=== PATIENT | male | born 1945 | race Caucasian/White ===

== ENCOUNTER 2023-12-09 13:50 | Observation (INO) | payer MEDICARE, SELFPAY ==
[2023-12-09] VITALS (18 sets, daily range): BP systolic 148–180; BP diastolic 103–124; PULSE 57–94; RESP 17–20; TEMP 36.4; O2SAT 95–100
--- NOTE | ~2023-12-09 | CT_ITS ---
EXAMINATION: CTA chest PE protocol DATE: 12/09/2023 23:23 INDICATION: DVT w/ dyspnea on exertion TECHNIQUE: Computed tomography angiography (CTA) of the chest was performed with 100 mL Omnipaque-350 intravenous contrast timed to evaluate the pulmonary arteries. Coronal maximum intensity projection 3D-reconstructions were created by the technologist. The dose-length product (DLP) was 753.17 mGy-cm. Automated exposure control and iterative reconstruction technique were employed. COMPARISON: X-ray chest, same date. FINDINGS: Lung parenchyma and airways: Bilateral dependent consolidation and volume loss. Airways are clear. Pleura: Moderate volume bilateral pleural fluid collections. Thoracic inlet, axillae and chest wall: Asymmetric subareolar soft tissue density in the left breast. Thoracic aorta: Mild atherosclerotic calcification. Mediastinum: Normal. Heart and pericardium: Mild cardiomegaly. Trace pericardial effusion. Coronary artery calcifications: Mild. Upper abdomen: No significant finding. Bones: No acute osseous finding. Exaggerated thoracic kyphosis. Multilevel mild anterior wedge deform ities in the midthoracic spine, likely chronic. Pulmonary arteries: Study quality: Adequate. No pulmonary emboli detected. IMPRESSION: No CT evidence of acute pulmonary embolus. Cardiomegaly. Small pericardial effusion. Moderate bilateral pleural effusions, with bibasilar atelectasis. Asymmetric subareolar soft tissue on the left, recommend nonemergent but timely outpatient diagnostic mammography and breast ultrasound. Reviewed, dictated and finalized at location K. TRICAL EQUIPMENT ASSEMBLER
--- NOTE | ~2023-12-09 | XR_ITS ---
EXAMINATION: XR chest 2V Exam Date/Time: 12/09/2023 17:35 BIOTECHNICIAN HISTORY: new onset atrial fibrillation Comparison: None. RESULT: Lines, tubes, and devices: None. Lungs and pleura: Moderate left and mild right basilar airspace disease. Moderate left and mild righ t costophrenic angle blunting. Cardiomediastinal silhouette: Partially obscured, mild arch desiccation, granulomatous calcification . Other: No acute osseous or upper abdominal finding. IMPRESSION: Moderate left and mild right pleural effusions with adjacent atelectasis. Infection is not excluded. Reviewed, dictated and finalized at location K. ECHNICIAN IMPRESSION: Moderate left and mild right pleural effusions with adjacent atelectasis. Infec tion is not excluded.
--- NOTE | 2023-12-09 14:16 | ECG_ITS ---
Measurements Intervals [place] Rate: 80 P: SD: 0 QRS: 18 QRSD: 92 T: 0 QT: 388 QTc: 449 Interpretive Statements ATRIAL FIBRILLATION NONSPECIFIC T-WAVE ABNORMALITY ABNORMAL RHYTHM ECG NO PREVIOUS ECG AVAILABLE FOR COMPARISON Electronically Signed On 12-09-2023 15:28:54 MOLD WORKER by Jaime Crowell M.D.
--- NOTE | 2023-12-09 17:20 | ED.ARRPALP ---
HPI - Arrhythmia/Palpitations General Chief Complaint: Arrhythmia/Palpitations <Marisol Ernst PA-C - Last Filed: 12/09/23 17:35> Stated Complaint: Irregular HR <Marisol Ernst PA-C - Last Filed: 12/09/23 17:35> Time Seen by Provider: 12/09/23 19:23 <Marisol Ernst PA-C - Last Filed: 12/09/23 17:35> Focused HPI: 78 y/o M reports to the ED for generalized weakness and fatigue x4-5 weeks. Pt states at the onset of symptoms he had cold symptoms , then developed swelling in his LLE. He went to [facility] with DVT in LLE, started on Eliquis. Has does not believe he has missed any doses. He went to his PCP at [facility] in [facility] today for weakness and was told he had a new irregular heartbeat, then advised to come to the ED. Denies chest pain, abdominal pain, n/v/d, fever, rash, headache. States he has intermittent dyspnea and cough. Denies history of A fib. GENERAL: Well-appearing, well-nourished, and in no acute distress. HEAD: Normocephalic, atraumatic. CHEST: Clear to auscultation. ?No respiratory distress. LLE 2+, RLE 3+ pitting edema HEART: Regular rate and rhythm.? NEURO: ?Alert and oriented x3. Patient screened in triage and initial orders placed.? ?Additional care and disposition to be based upon?diagnostic testing and treatment. <Marisol Ernst PA-C - Last Filed: 12/09/23 17:35> Focused HPI: 78 y/o M reports to the ED for generalized weakness and fatigue x4-5 weeks. Pt states at the onset of symptoms he had cold symptoms , then developed swelling in his RLE. He went to [facility] with DVT in RLE, started on Eliquis. Has does not believe he has missed any doses. He went to his PCP at [facility] in [facility] today for weakness and was told he had a new irregular heartbeat, then advised to come to the ED. Denies chest pain, abdominal pain, n/v/d, fever, rash, headache. States he has intermittent dyspnea and cough. Denies history of A fib. GENERAL: Well-appearing, well-nourished, and in no acute distress. HEAD: Normocephalic, atraumatic. CHEST: Clear to auscultation. ?No respiratory distress. LLE 2+, RLE 3+ pitting edema HEART: Regular rate and rhythm.? NEURO: ?Alert and oriented x3. Patient screened in triage and initial orders placed.? ?Additional care and disposition to be based upon?diagnostic testing and treatment. <Mike Walton MD - Last Filed: 12/10/23 01:19> Related Data Allergies/Adverse Reactions: Allergies Allergy/AdvReac Type Severity Reaction Status Date / Time No Known Allergies Allergy Verified 07/18/13 10:28 <Marisol Ernst PA-C - Last Filed: 12/09/23 17:35> PMFSH Past Medical History Medical History: Medical History BPH (benign prostatic hyperplasia) Dementia DVT (deep venous thrombosis) <Marisol Ernst PA-C - Last Filed: 12/09/23 17:35> Exam Narrative: APPEARANCE: No apparent distress. Head: atraumatic. EYES: EOMI, NOSE: Atraumatic NECK: Trachea midline RESPIRATORY: No increased rate of breathing decreased lung sounds in left lower field, with scattered crackles CARDIOVASCULAR: RRR, swelling of the right extremity ABDOMINAL: Non-distended MUSCULOSKELETAl: No obvious deformities NEURO: Alert. Moving 4/4 extremities SKIN:: Warm, dry. Normal color PSYCHIATRIC: Normal affect <Mike Walton MD - Last Filed: 12/10/23 01:19> Course Vital Signs Vital signs: Vital Signs Temperature 97.5 F L 12/09/23 14:10 Pulse Rate 57 L 12/09/23 14:10 Respiratory Rate 12/09/23 14:10 Blood Pressure 148/122 H 12/09/23 14:10 Pulse Oximetry 99 12/09/23 14:10 Oxygen Delivery Room Air 12/09/23 14:10 Temperature 97.5 F L 12/09/23 14:10 Pulse Rate 67 12/09/23 23:11 Respiratory Rate 12/09/23 23:11 Blood Pressure 158/111 H 12/09/23 23:11 Pulse Oximetry 96 12/09/23 23:11 Oxygen Delivery Room Air
[2023-12-09 19:49] LABS: Basophils Percent Auto 0.5 % (0.2-1.2); Eosinophils Absolute Auto 0.4 K/mm3 (0-0.3); Eosinophils Percent Auto 6.3 % (0-4.4); Hematocrit 44.4 % (42.0-52.0); Hemoglobin 13.2 g/dL (14.0-18.0); Immature Granulocyte Absolute 0.01 K/mm3 (0.00-0.031); Immature Granulocyte Percent A 0.2 % (0-0.5); Lymphocytes Absolute Auto 1.53 K/mm3 (0.9-3.2); Lymphocytes Percent Auto 26.9 % (18.3-44.2); Mean Corpuscular HGB Conc 29.7 g/dl (32-36); Mean Corpuscular Hemoglobin 26.2 pg (26-34); Mean Corpuscular Volume 88.3 fl (80-100); Monocytes Absolute Auto 0.5 K/mm3 (0.1-0.6); Monocytes Percent Auto 8.1 % (2.6-8.5); Neutrophils Absolute Auto 3.3 K/mm3 (1.3-6.7); Platelet Count Result 204 k/mm3 (150-375); Red Blood Count 5.03 M/mm3 (4.6-6.20); Red Cell Distribution Width 14.8 % (11.5-14.5); White Blood Count 5.7 K/mm3 (4.5-10.0)
[2023-12-09 19:59] LABS: Alanine Aminotransferase 33 U/L (6-50); Albumin Level 4.3 g/dL (3.5-5.1); Alkaline Phosphatase 63 U/L (38-126); Anion Gap 7 mmol/L (8-16); Aspartate Amino Transferase 35 U/L (17-59); Bilirubin,Total 1.2 mg/dL (0.2-1.3); Blood Urea Nitrogen 22 mg/dL (9-20); Calcium 9.2 mg/dL (8.4-10.2); Carbon Dioxide 28 mmol/L (22-30); Chloride 106 mmol/L (98-107); Estimated CRCL calculation 78 ml/min; Estimated Glomerular Filt Rate > 60; Glucose 138 mg/dL (65-110); Magnesium 2.1 mg/dL (1.6-2.3); Potassium 3.5 mmol/L (3.4-5.0); Sodium 141 mmol/L (137-145)
[2023-12-09 20:01] LABS: INR 1.2; Partial Thromboplastin Time 32.8 SECONDS (22.3-36.8); Prothrombin Time 15.3 Seconds (11.1-14.7)
[2023-12-09 20:03] LABS: Appearance Urine Clear (Clear); Bacteria Urine None Seen /hpf; Bilirubin Urine Negative (Negative); Blood Urine Negative (Negative); Color Urine Yellow (Yellow); Glucose Urine UA Negative (Negative); Ketones Urine Negative (Negative); Leukocyte Esterase Ur Negative LEU/UL (Negative); Nitrate Urine Negative (Negative); Non Pathogenic Casts 0-2; Protein Urine Trace mg/dL (Negative); RBC Urine 0-2 /hpf (0-2); Squamous Epithelial Cell Urine None seen /hpf (Few); Urobilinogen Urine 0.2 mg/dL (<2.0); WBC Urine 0-5 /hpf; pH Urine 5.5 (5.0-9.0)
[2023-12-09 20:09] LABS: Add Urine Microscopic? YES
[2023-12-09 20:12] LABS: NT Pro B Type Natriuretic Pept 3000 pg/mL (19.9-100); Troponin I 0.012 ng/mL (0.000-0.034)
[2023-12-09 20:25] LABS: Influenza A QL RT-PCR Negative (Negative); Influenza B QL RT-PCR Negative (Negative); RSV RNA, RT-PCR Negative (Negative); SARS-CoV-2 RNA PCR Negative (Negative)
[2023-12-10] VITALS (22 sets, daily range): BP systolic 140–177; BP diastolic 93–113; PULSE 76–100; RESP 18–24; TEMP 36.3–36.9; O2SAT 96–100; BMI 32.4
[2023-12-10] MEDS: FUROSEMIDE INJ 40 MG/4 ML VIAL IV PUSH ×2 (00:42→08:43)
--- NOTE | 2023-12-10 01:41 | PM.IMHP ---
H&P: HPI History of Present Illness Date/Time: 12/10/23 01:41 Chief Complaint: Weakness Narrative: Patient is a 78-year-old male who came to the ED for evaluation of generalized weakness and fatigue has been going on for about 4-5 weeks, this was preceded by cold symptoms then left lower extremity swelling, ultrasound of the left lower extremity done and he was diagnosed of DVT and started on Eliquis. He was also seen at his PCP yesterday for generalized weakness and was told he has new onset irregular heartbeat and advised him to come to the emergency department, he had night nausea vomiting or diarrhea, fever Review of Systems Review of Systems: All systems reviewed & are unremarkable except as noted in HPI and below PMFSH Past Medical History Medical History BPH (benign prostatic hyperplasia) Dementia DVT (deep venous thrombosis) Social History Social History Smoking status: Never smoker Alcohol intake: never Substance use: never Do You Feel Safe in your Home?: Yes Lack of Transportation: No Lack of Food: Never True Current Housing: I Have Housing Concerned About Future Housing: No Difficulty Paying Gas/Electric Bills: YES Difficulty Paying for Meds: YES Currently Unemployed: No Education: Master's Degree or Higher Difficulty w/ Childcare or Family Care: No Spiritual care concerns: No Meds Home Medications and Allergies Home Medications Medication Instructions Recorded Confirmed Type apixaban 5 mg tablet (Eliquis) 5 mg PO BID 12/10/23 12/10/23 History donepezil 10 mg tablet 10 mg PO DAILY 12/10/23 12/10/23 History dutasteride 0.5 mg capsule 0.5 mg PO DAILY 12/10/23 12/10/23 History levothyroxine 25 mcg tablet 25 mcg PO DAILY 12/10/23 12/10/23 History metformin 500 mg tablet 500 mg PO BID 12/10/23 12/10/23 History multivit with minerals-iron 18 1 tablet PO DAILY 12/10/23 12/10/23 History mg-folic ac 400 mcg-vit K 25 mcg tablet (Adults Multivitamin) sennosides 8.6 mg tablet (Senna 8.6 mg PO BID 12/10/23 12/10/23 History Lax) tamsulosin 0.4 mg capsule 0.4 mg PO DAILY 12/10/23 12/10/23 History Allergies Allergy/AdvReac Type Severity Reaction Status Date / Time No Known Allergies Allergy Verified 07/18/13 10:28 Vital Signs Vital Signs - 24 hr 12/09/23 14:10 12/09/23 19:44 12/09/23 19:43 Temperature 97.5 F L Pulse Rate 57 L 84 70 Respiratory Rate 20 18 Blood Pressure 148/122 H 180/124 H Pulse Oximetry 99 100 Oxygen Delivery Room Air 12/09/23 20:30 12/09/23 19:44 12/09/23 19:45 Temperature Pulse Rate 80 66 Respiratory Rate 18 Blood Pressure 160/103 H Pulse Oximetry Oxygen Delivery 12/09/23 19:52 12/09/23 20:00 12/09/23 20:01 Temperature Pulse Rate 71 74 78 Respiratory Rate Blood Pressure 165/116 H Pulse Oximetry 99 Oxygen Delivery 12/09/23 20:02 12/09/23 21:27 12/09/23 22:00 Temperature Pulse Rate 84 71 85 Respiratory Rate 17 Blood Pressure Pulse Oximetry 98 100 Oxygen Delivery 12/09/23 22:15 12/09/23 23:11 12/09/23 22:30 Temperature Pulse Rate 86 67 84 Respiratory Rate 20 Blood Pressure 158/111 H Pulse Oximetry 96 100 Oxygen Delivery 12/09/23 22:45 12/09/23 23:00 12/09/23 23:11 Temperature Pulse Rate 84 94 74 Respiratory Rate 18 Blood Pressure 158/111 H Pulse Oximetry 100 Oxygen Delivery 12/09/23 23:45 12/09/23 23:57 12/10/23 00:00 Temperature Pulse Rate 75 91 83 Respiratory Rate Blood Pressure 171/116 H Pulse Oximetry 95 97 Oxygen Delivery 12/10/23 00:01 12/10/23 00:15 12/10/23 00:33 Temperature Pulse Rate 82 84 Respiratory Rate 19 Blood Pressure Pulse Oximetry 98 96 Oxygen Delivery Exam Narrative: PPEARANCE: No apparent distress. Head: atraumatic. EYES:? EOMI, NOSE: Atraumatic NEC
[2023-12-10] MEDS: ENOXAPARIN 120 MG/0.8 ML SYRINGE SUB-Q (03:50)
--- NOTE | 2023-12-10 05:14 | ADMGEN ---
This patient, Francisco Little, was admitted to [facility] Surg Room 332-02. Patient/family oriented to hospital policies and general routines including ID bracelet, bed and alarms, visiting hours, pain management, procedures, bathroom and other care routines, personal items, smoking policy, room service/diet, and visiting hours. Information on how to activate the Rapid Response Team has been discussed. Patient/Family are encouraged to report perceived risks to care and to ask questions if they do not understand what they are told or what they should do.
[2023-12-10 05:44] LABS: Phosphorus 3.6 mg/dL (2.5-4.5)
[2023-12-10 06:42] LABS: Basophils Absolute Auto 0.1 K/mm3 (0.0-0.1); Basophils Percent Auto 0.8 % (0.2-1.2); Eosinophils Absolute Auto 0.3 K/mm3 (0-0.3); Eosinophils Percent Auto 4.7 % (0-4.4); Hematocrit 43.3 % (42.0-52.0); Hemoglobin 13.2 g/dL (14.0-18.0); Immature Granulocyte Absolute 0.01 K/mm3 (0.00-0.031); Immature Granulocyte Percent A 0.1 % (0-0.5); Lymphocytes Absolute Auto 1.23 K/mm3 (0.9-3.2); Lymphocytes Percent Auto 17.1 % (18.3-44.2); Mean Corpuscular HGB Conc 30.5 g/dl (32-36); Mean Corpuscular Hemoglobin 26.5 pg (26-34); Mean Corpuscular Volume 86.9 fl (80-100); Mean Platelet Volume 9.1 fl (7.4-10.4); Monocytes Absolute Auto 0.7 K/mm3 (0.1-0.6); Monocytes Percent Auto 9.7 % (2.6-8.5); Neutrophils Absolute Auto 4.9 K/mm3 (1.3-6.7); Neutrophils Percent Auto 67.6 % (45.5-73.1); Platelet Count Result 213 k/mm3 (150-375); Red Blood Count 4.98 M/mm3 (4.6-6.20); Red Cell Distribution Width 14.8 % (11.5-14.5); White Blood Count 7.2 K/mm3 (4.5-10.0)
[2023-12-10 06:51] LABS: Anion Gap 6 mmol/L (8-16); Blood Urea Nitrogen 18 mg/dL (9-20); Carbon Dioxide 28 mmol/L (22-30); Chloride 105 mmol/L (98-107); Estimated CRCL calculation 78 ml/min; Estimated Glomerular Filt Rate > 60; Glucose 127 mg/dL (65-110); Potassium 3.1 mmol/L (3.4-5.0); Sodium 139 mmol/L (137-145)
--- NOTE | 2023-12-10 08:41 | ECG_ITS ---
Measurements Intervals [place] Rate: 85 P: [place]: 0 QRS: 56 QRSD: 90 T: -5 QT: 397 QTc: 475 Interpretive Statements ATRIAL FIBRILLATION WITH ABERRANT CONDUCTION MODERATE T-WAVE ABNORMALITY, CONSIDER ANTERIOR ISCHEMIA [-0.1+ mV T WAVE IN V3/V4] ABNORMAL ECG COMPARED TO ECG 12/09/2023 14:20:12 RATE RELATED LEFT BUNDLE BRANCH BLOCK IS NO SEEN Electronically Signed On 12-10-2023 19:12:10 PUBLIC AFFAIRS MANAGER by Jaime Crowell M.D.
[2023-12-10] MEDS: TAMSULOSIN HCL 0.4 MG CAPSULE PO (08:43)
[2023-12-10] MEDS: MULTIVITAMINS /C LUTEIN (CENTRUM SILVER) TABLET *BKC 1 TAB PO (08:43)
[2023-12-10] MEDS: DUTASTERIDE 0.5 MG CAPSULE PO (08:43)
[2023-12-10] MEDS: LEVOTHYROXINE SODIUM 25 MCG TABLET PO (08:43)
[2023-12-10] MEDS: SENNOSIDES 8.6 MG TABLET PO ×2 (08:43→18:12)
[2023-12-10] MEDS: POTASSIUM CHLORIDE INJ 40 MEQ in SODIUM CHLORIDE 0.9% IV 500 ML 130 MEQ IVPB (08:43)
[2023-12-10] MEDS: DONEPEZIL HCL 10 MG TABLET PO (08:43)
[2023-12-10] MEDS: metFORMIN HCL 500 MG TABLET PO ×2 (08:43→18:13)
[2023-12-10] MEDS: POTASSIUM CHLORIDE 20 MEQ ER TABLET 40 MEQ PO (08:45)
--- NOTE | 2023-12-10 09:01 | PM.IMPN ---
Progress Note: A&P Assessment and Plan (1) Atrial fibrillation, new onset: Code(s): I48.91 - Unspecified atrial fibrillation Status: Acute Assessment and Plan: Apparent new onset atrial fibrillation currently anticoagulated with Eliquis for known right lower extremity DVT. Rate is highly variable from the 60s to 130s and definitely increases with activity/exertion. Cardiology consulted. Patient moved to IMU due to runs of wide complex tachycardia alarming as V-tach. Potassium is 3.1 and replacement ordered. Magnesium is normal at 2.0. (2) CHF (congestive heart failure): Code(s): I50.9 - Heart failure, unspecified Status: Acute Assessment and Plan: No prior history of CHF per patient report. Cardiomegaly present on imaging as well as pleural effusion. Echocardiogram ordered. Cardiology consulted. proBNP 3000. Patient urinated out over 4000 mL of urine after receiving IV Lasix at midnight and again at 9:00 a.m. (3) DVT (deep venous thrombosis): Code(s): I82.409 - Acute embolism and thrombosis of unspecified deep veins of unspecified lower extremity Status: Acute Assessment and Plan: Continue Eliquis Time Spent With Patient Time with patient: Greater than 35 minutes Subjective Date/time seen: 12/10/23 09:01 Interval history: This is a 78 male patient who was admitted to the hospital for what appears to be new onset atrial fibrillation and severe fatigue. Patient reports that 5 weeks ago he developed cold like symptoms and since that time he has been getting more fatigued daily. He reports significant shortness of breath on exertion such as climbing stairs. Patient reports he developed right leg swelling and was subsequently diagnosed with DVT and started on Eliquis. In ER patient had negative CTA chest. On the medical floor heart rate was irregular and rhythm appeared to have runs of V-tach. Patient moved to IMU and Cardiology to see. Review of Systems Review of Systems: All systems reviewed & are unremarkable except as noted in HPI and below Exam Narrative: GENERAL: Appears younger than stated age, well-nourished, fatigued appearing HEAD: Normocephalic, atraumatic. ENT:? Mucous membranes moist. CHEST: Clear to auscultation.? No respiratory distress. HEART: Irregular rate and irregularly irregular rhythm. ? Normal peripheral pulses. Atrial fibrillation with runs wide complex tachycardia, rate varies from 63 to 130 per telemetry monitoring by my own interpretation. ABDOMEN: Soft, nontender, nondistended. EXTREMITIES: Normal range of motion. Right lower extremity mildly swollen, Ede hose in place bilaterally SKIN: Warm dry normal color NEURO: Alert and oriented x3. PSYCH: Normal mood and affect Objective Data Vital Signs Vital Signs: Vital Signs - 24 hr 12/09/23 14:10 12/09/23 19:44 12/09/23 19:43 Temperature 36.4 C L Pulse Rate 57 L 84 70 Respiratory Rate 20 18 Blood Pressure 148/122 H 180/124 H Pulse Oximetry 99 100 Oxygen Delivery Room Air 12/09/23 20:30 12/09/23 19:44 12/09/23 19:45 Temperature Pulse Rate 80 66 Respiratory Rate 18 Blood Pressure 160/103 H Pulse Oximetry Oxygen Delivery 12/09/23 19:52 12/09/23 20:00 12/09/23 20:01 Temperature Pulse Rate 71 74 78 Respiratory Rate Blood Pressure 165/116 H Pulse Oximetry 99 Oxygen Delivery 12/09/23 20:02 12/09/23 21:27 12/09/23 22:00 Temperature Pulse Rate 84 71 85 Respiratory Rate 17 Blood Pressure Pulse Oximetry 98 100 Oxygen Delivery 12/09/23 22:15 12/09/23 23:11 12/09/23 22:30 Temperature Pulse Rate 86 67 84 Respiratory Rate 20 Blood Pressure 158/111 H Pulse Oximetry 96 100 Oxygen Delivery 12/09/23 22:45 12/09/23 23:00 12/09/23 23:11 Temperature Pulse Rate 84 94 74 Respiratory Rate 18 Blood Pressure 158/111 H Pulse Oximetry 100 Oxygen Delivery 12/09/23 23:45 12/09/23 23
--- NOTE | 2023-12-10 13:03 | PC.NURSE ---
This patient, Francisco Little, was transferred to [facility] on 12/10/23 at 1303. Personal belongings sent with patient. Report given to bedside RN. Appropriate documentation sent with patient.
--- NOTE | 2023-12-10 13:15 | PC.NURSE ---
patient arrived to 204 at 1300, telemetry placed, Dr. Crowell talking to patient, bed alarm placed.
--- NOTE | 2023-12-10 16:34 | PM.CNCAR ---
Assessment and Plan Assessment and plan (1) Atrial fibrillation, new onset: Code(s): I48.91 - Unspecified atrial fibrillation Status: Acute Plan This is a 78-year-old gentleman who has atrial fibrillation and has previously not been diagnosed her appreciated. I do not have any records that include EKGs recently that demonstrate sinus rhythm so the exact onset of this arrhythmia is unknown. Unfortunately because of his DVT he is already systemically anticoagulated with apixaban. He does have some edema and pleural effusions and so the possibility of CHF is being entertained in his chart. He does not really require a lot of rate control since his heart rate was in the 80s at the time of presentation. At this time I am going to recommend transitioning from diltiazem to metoprolol for his atrial fib as this would be preferred if he does have some congestive heart failure. I will review his echocardiogram after the study is done today. We will not be recommending or attempting cardioversion during this hospital stay as his atrial fibrillation is hemodynamically stable and of unknown duration of onset. Will follow him with you during this hospital stay. There was a lot of concern this morning that he was having ventricular arrhythmias which as I mentioned above is not the case Jiame Crowell MD [facility] History of Present Illness History of Present Illness Consult date/time: 12/10/23 16:34 Reason For Visit: new afib Narrative: This is a 78-year-old man I am seeing at the request of the hospitalist because of atrial fibrillation and the suspected new diagnosis of congestive heart failure. The patient has never had cardiac problems in the past that he can recall. He indicates that he consider [facility] to be usually in fairly good health but he recently developed a left lower extremity DVT and was evaluated at [facility] in [place]. He indicates that he was started on anticoagulation with apixaban at that time and that was a couple of weeks ago. He went to see his primary care physician in follow-up yesterday apparently is located in [place] and in the office detected that he was in atrial fibrillation and told him to go to the emergency room here at [facility] have that evaluated. In the emergency room it looks like his ECG shows atrial fibrillation with a heart rate of 80 and he was admitted to the 3rd floor. During the course of telemetry on the 3rd floor it was noticed that he would at times have a wider QRS which was concerning to them for ventricular tachycardia. Upon my personal review this represents aberrantly conducted atrial fibrillation. He does not have any awareness of irregularity of his heart rate or any symptoms of palpitations he is not really reporting symptoms of dyspnea. He has lower extremity edema he stents is been chronic for some time is possibly little worse. His chest x-ray demonstrates small to medium sized bilateral pleural effusions. He is not reporting orthopnea or PND. His only physical complaint is that of generalized fatigue and lack of energy. The patient believes this is all a consequence of recent COVID infection. He states he had a significant coronavirus infection 3-4 years ago and tested positive at that time. Several weeks ago he was sick with a viral illness marked with a fever and malaise. He did not test for coronavirus but he suspects that he had it. He appears to have a history of non insulin-dependent diabetes being treated with metformin and hypothyroidism being treated with levothyroxine. He is taking apixaban 5 mg b.i.d. as mentioned above. Diltiazem 30 mg q.6 hours has been ordered presumably to provide rate control. Review of Systems Constitutional: Constitutional: Reports fatigue and Reports lethargy Eyes: Eyes: Reports no additional eye complaints ENT: Reports system reviewed and no additional complaints, except as documented Cardiovascular: Cardiovascu
[2023-12-10] MEDS: METOPROLOL TARTRATE 12.5 MG TABLET PO (18:13)
[2023-12-10] MEDS: APIXABAN 5 MG TABLET PO (20:19)
[2023-12-10 20:42] LABS: Free T4 Free Thyroxine 1.91 ng/mL (0.78-2.19)
[2023-12-10 20:56] LABS: Total Triiodothyronine (T3) 1.02 NG/ML (0.97-1.69)
[2023-12-10 21:33] LABS: Free T4 Free Thyroxine Reflex 2.01 ng/dL (0.78-2.19)
[2023-12-11] VITALS (12 sets, daily range): BP systolic 130–146; BP diastolic 83–102; PULSE 67–98; RESP 17–20; TEMP 36.5–36.9; O2SAT 95–100
[2023-12-11 04:59] LABS: Basophils Percent Auto 0.8 % (0.2-1.2); Eosinophils Absolute Auto 0.2 K/mm3 (0-0.3); Eosinophils Percent Auto 3.5 % (0-4.4); Hematocrit 38.8 % (42.0-52.0); Immature Granulocyte Absolute 0.01 K/mm3 (0.00-0.031); Immature Granulocyte Percent A 0.2 % (0-0.5); Lymphocytes Absolute Auto 1.25 K/mm3 (0.9-3.2); Lymphocytes Percent Auto 24.6 % (18.3-44.2); Mean Corpuscular HGB Conc 30.9 g/dl (32-36); Mean Corpuscular Hemoglobin 26.4 pg (26-34); Mean Corpuscular Volume 85.3 fl (80-100); Mean Platelet Volume 9.3 fl (7.4-10.4); Monocytes Absolute Auto 0.5 K/mm3 (0.1-0.6); Monocytes Percent Auto 9.1 % (2.6-8.5); Neutrophils Absolute Auto 3.1 K/mm3 (1.3-6.7); Neutrophils Percent Auto 61.8 % (45.5-73.1); Platelet Count Result 187 k/mm3 (150-375); Red Blood Count 4.55 M/mm3 (4.6-6.20); White Blood Count 5.1 K/mm3 (4.5-10.0)
[2023-12-11 05:17] LABS: Alanine Aminotransferase 22 U/L (6-50); Albumin Level 3.2 g/dL (3.5-5.1); Alkaline Phosphatase 53 U/L (38-126); Anion Gap 3 mmol/L (8-16); Aspartate Amino Transferase 26 U/L (17-59); Bilirubin,Total 1.2 mg/dL (0.2-1.3); Blood Urea Nitrogen 16 mg/dL (9-20); Calcium 8.7 mg/dL (8.4-10.2); Carbon Dioxide 29 mmol/L (22-30); Chloride 108 mmol/L (98-107); Estimated CRCL calculation 77 ml/min; Estimated Glomerular Filt Rate > 60; Glucose 131 mg/dL (65-110); Potassium 3.4 mmol/L (3.4-5.0); Sodium 140 mmol/L (137-145)
[2023-12-11] MEDS: LEVOTHYROXINE SODIUM 25 MCG TABLET PO (05:48)
[2023-12-11] MEDS: POTASSIUM CHLORIDE INJ 40 MEQ in SODIUM CHLORIDE 0.9% IV 500 ML 130 MEQ IVPB (09:53)
[2023-12-11] MEDS: POTASSIUM CHLORIDE 20 MEQ ER TABLET 40 MEQ PO (09:53)
[2023-12-11] MEDS: DONEPEZIL HCL 10 MG TABLET PO (09:54)
[2023-12-11] MEDS: MULTIVITAMINS /C LUTEIN (CENTRUM SILVER) TABLET *BKC 1 TAB PO (09:54)
[2023-12-11] MEDS: metFORMIN HCL 500 MG TABLET PO (09:54)
[2023-12-11] MEDS: METOPROLOL SUCCINATE EXT REL 25 MG TABCR PO (09:54)
[2023-12-11] MEDS: DUTASTERIDE 0.5 MG CAPSULE PO (09:54)
[2023-12-11] MEDS: SENNOSIDES 8.6 MG TABLET PO (09:54)
[2023-12-11] MEDS: TAMSULOSIN HCL 0.4 MG CAPSULE PO (09:54)
[2023-12-11] MEDS: FUROSEMIDE INJ 40 MG/4 ML VIAL IV PUSH (09:55)
[2023-12-11] MEDS: APIXABAN 5 MG TABLET PO (09:55)
--- NOTE | 2023-12-11 10:15 | PM.IMPN ---
Subjective Date/time seen: 12/11/23 10:15 Objective Data Vital Signs Vital Signs: Vital Signs - 24 hr 12/10/23 12:00 12/10/23 12:00 12/10/23 17:10 Temperature 36.3 C L Pulse Rate 100 85 Respiratory Rate 18 Blood Pressure 149/100 H Pulse Oximetry 99 Oxygen Delivery Room Air 12/10/23 18:13 12/10/23 16:00 12/10/23 16:00 Temperature Pulse Rate 90 86 Respiratory Rate Blood Pressure Pulse Oximetry Oxygen Delivery Room Air 12/10/23 20:00 12/10/23 20:00 12/10/23 20:00 Temperature 36.9 C Pulse Rate 94 94 76 Respiratory Rate 18 18 Blood Pressure 140/93 H Pulse Oximetry 96 96 Oxygen Delivery Room Air 12/10/23 22:00 12/11/23 00:00 12/11/23 00:00 Temperature Pulse Rate 76 81 81 Respiratory Rate 20 Blood Pressure Pulse Oximetry 97 Oxygen Delivery Room Air 12/11/23 01:34 12/11/23 00:00 12/11/23 03:51 Temperature 36.5 C 36.9 C Pulse Rate 67 92 94 Respiratory Rate 18 18 Blood Pressure 141/88 H 146/98 H Pulse Oximetry 97 95 Oxygen Delivery 12/11/23 03:52 12/11/23 04:00 12/11/23 05:17 Temperature Pulse Rate 94 69 68 Respiratory Rate 18 Blood Pressure Pulse Oximetry 95 Oxygen Delivery Room Air 12/11/23 07:54 12/11/23 09:31 12/11/23 09:54 Temperature 36.8 C Pulse Rate 87 98 Respiratory Rate 17 Blood Pressure 130/83 Pulse Oximetry 97 Oxygen Delivery Room Air Intake/Output Intake/Output: Intake & Output 12/08/23 12/09/23 12/10/23 12/11/23 23:59 23:59 23:59 23:59 Intake Total 688 490 Output Total 5150 300 Balance -4462 190 Meds/Results Medications: Active Medications Generic Name Dose Route Start Last Admin Trade Name Freq PRN Reason Stop Dose Admin Apixaban 5 mg 12/10/23 21:00 12/11/23 09:55 Apixaban 5 Mg Tablet PO 5 mg Q12HR TARA Administration Donepezil HCl 10 mg 12/10/23 09:00 12/11/23 09:54 Donepezil Hcl 10 Mg Tablet PO 10 mg DAILY TARA Administration Dutasteride 0.5 mg 12/10/23 09:00 12/11/23 09:54 Dutasteride 0.5 Mg Capsule PO 0.5 mg DAILY TARA Administration Furosemide 40 mg 12/10/23 09:00 12/11/23 09:55 Furosemide Inj 40 Mg/4 Ml Vial IV PUSH 40 mg DAILY TARA Administration Potassium Chloride 40 meq/ 520 mls @ 130 mls/hr 12/11/23 07:11 12/11/23 09:53 Sodium Chloride IVPB 12/11/23 11:10 130 mls/hr ONCE ONE Administration Levothyroxine Sodium 25 mcg 12/10/23 06:30 12/11/23 05:48 Levothyroxine Sodium 25 Mcg Tablet PO 25 mcg DAILY@0630 TARA Administration Metformin HCl 500 mg 12/10/23 09:00 12/11/23 09:54 Metformin Hcl 500 Mg Tablet PO 500 mg BID TARA Administration Metoprolol Succinate 25 mg 12/11/23 09:00 12/11/23 09:54 Metoprolol Succinate Ext Rel 25 Mg Tabcr PO 25 mg QAM TARA Administration Multivitamins/Minerals 1 tab 12/10/23 09:00 12/11/23 09:54 Multivitamins /C Lutein (Centrum Silver) Tablet *Bkc PO 1 tab DAILY TARA Administration Perflutren Lipid Microsphere 0 ml 12/10/23 01:17 Perflutren Lipid Microspheres 1.5 Ml Vial Diluted To 10 Ml Total Volume IV PUSH 12/13/23 01:18 ONCE PRN adequate visualization Protocol Senna 8.6 mg 12/10/23 09:00 12/11/23 09:54 Sennosides 8.6 Mg Tablet PO 8.6 mg BID TARA Administration Tamsulosin HCl 0.4 mg 12/10/23 09:00 12/11/23 09:54 Tamsulosin Hcl 0.4 Mg Capsule PO 0.4 mg DAILY TARA Administration Radiology Results: ITS Impressions Chest X-Ray 12/09/23 17:42 IMPRESSION: Moderate left and mild right pleural effusions with adjacent atelectasis. Infection is not excluded. Chest CTA 12/09/23 23:42 IMPRESSION: No CT evidence of acute pulmonary embolus. Cardiomegaly. Small pericardial effusion. Moderate bilateral pleural effusions, with bibasilar atelectasis. Asymmetric subareolar soft tissue on the left, recommend nonemergent but timely outpatient diagnostic mammography and breast u
--- NOTE | 2023-12-11 10:37 | PM.PNCARD ---
Progress Note: A&P Assessment and Plan (1) Atrial fibrillation, new onset: Code(s): I48.91 - Unspecified atrial fibrillation Status: Acute Plan 78-year-old man with: Atrial fibrillation of unknown duration. His heart rate is well controlled with modest dose of metoprolol and as mentioned previously he is already anticoagulated with apixaban. Seems to be hemodynamically stable. Echocardiogram will take place tomorrow after which he can probably be discharged for outpatient follow-up. Expect a conservative approach to this with rate control and anticoagulation at this time Jaime Crowell MD [facility] Subjective Date/time seen: Date of service: 12/11/23 10:37 Interval history: Follow-up visit in this 78-year-old man with: Atrial fibrillation of uncertain chronicity. He was referred here by his PCP when AFib was detected in the office. Heart rate is well controlled with metoprolol. Telemetry does demonstrate rate related left bundle branch block. Patient already had been anticoagulated because of recent diagnosis of lower extremity DVT. He feels well this morning and offers no significant complaints Exam Const: General: comfortable Other: Tall elderly man comfortable cooperative with appears to be in good spirits HENMT: Mouth: Yes moist mucous membranes Eyes: Sclera: sclerae normal Neck: Neck: supple and no JVD Resp: Effort & Inspection: normal respiratory effort Auscultation: clear to auscultation bilaterally Cardio: Rate: regular rate Rhythm: abnormal rhythm irregularly irregular GI: GI Palp: Yes Soft to palpation Auscultation: normal bowel sounds Skin: General skin exam: normal color Neuro: Other: Alert and oriented x3 Extrem: General: normal to inspection Objective Data Vital Signs Vital Signs: Vital Signs - 24 hr 12/10/23 12:00 12/10/23 12:00 12/10/23 17:10 Temperature 36.3 C L Pulse Rate 100 85 Respiratory Rate 18 Blood Pressure 149/100 H Pulse Oximetry 99 Oxygen Delivery Room Air 12/10/23 18:13 12/10/23 16:00 12/10/23 16:00 Temperature Pulse Rate 90 86 Respiratory Rate Blood Pressure Pulse Oximetry Oxygen Delivery Room Air 12/10/23 20:00 12/10/23 20:00 12/10/23 20:00 Temperature 36.9 C Pulse Rate 94 94 76 Respiratory Rate 18 18 Blood Pressure 140/93 H Pulse Oximetry 96 96 Oxygen Delivery Room Air 12/10/23 22:00 12/11/23 00:00 12/11/23 00:00 Temperature Pulse Rate 76 81 81 Respiratory Rate 20 Blood Pressure Pulse Oximetry 97 Oxygen Delivery Room Air 12/11/23 01:34 12/11/23 00:00 12/11/23 03:51 Temperature 36.5 C 36.9 C Pulse Rate 67 92 94 Respiratory Rate 18 18 Blood Pressure 141/88 H 146/98 H Pulse Oximetry 97 95 Oxygen Delivery 12/11/23 03:52 12/11/23 04:00 12/11/23 05:17 Temperature Pulse Rate 94 69 68 Respiratory Rate 18 Blood Pressure Pulse Oximetry 95 Oxygen Delivery Room Air 12/11/23 07:54 12/11/23 09:31 12/11/23 09:54 Temperature 36.8 C Pulse Rate 87 98 Respiratory Rate 17 Blood Pressure 130/83 Pulse Oximetry 97 Oxygen Delivery Room Air Intake/Output Intake/Output: Intake & Output 12/08/23 12/09/23 12/10/23 12/11/23 23:59 23:59 23:59 23:59 Intake Total 688 490 Output Total 5150 300 Balance -4462 190 Meds/Results Medications: Active Medications Generic Name Dose Route Start Last Admin Trade Name Freq PRN Reason Stop Dose Admin Apixaban 5 mg 12/10/23 21:00 12/11/23 09:55 Apixaban 5 Mg Tablet PO 5 mg Q12HR TARA Administration Donepezil HCl 10 mg 12/10/23 09:00 12/11/23 09:54 Donepezil Hcl 10 Mg Tablet PO 10 mg DAILY TARA Administration Dutasteride 0.5 mg 12/10/23 09:00 12/11/23 09:54 Dutasteride 0.5 Mg Capsule PO 0.5 mg DAILY TARA Administration Furosemide 40 mg 12/10/23 09:00 12/11/23 09:55 Furosemide Inj 40 Mg/4 Ml Vial IV PUSH 40 mg DAILY [facility] Ad
--- NOTE | 2023-12-11 12:58 | PM.DS ---
DS: Admitting Diagnosis Discharge Date 12/11/2023 Admitting Diagnosis Atrial fibrillation new onset, cardiomegaly, pleural effusion, CHF DS: Discharge Diagnosis Discharge Diagnosis (1) Atrial fibrillation, new onset: Code(s): I48.91 - Unspecified atrial fibrillation Status: Acute (2) CHF (congestive heart failure): Code(s): I50.9 - Heart failure, unspecified Status: Acute (3) DVT (deep venous thrombosis): Code(s): I82.409 - Acute embolism and thrombosis of unspecified deep veins of unspecified lower extremity Status: Acute Plan Patient did not want to stay any longer for echocardiogram he wanted to obtain as an outpatient so prescription was written for such as well as Lasix 20 mg daily. DS: Summary Hospital Course Hospital Course: This is a 78-year-old male patient who was admitted to the hospital for fatigue and atrial fibrillation of unknown onset. His anticoagulated due to right lower extremity DVT that was discovered previously. Patient denied any difficulty breathing but had pleural effusion on chest x-ray and a slightly elevated BNP. He received Lasix and urinated significantly. Patient reported he only had shortness of breath on exertion. No swelling noted. Lung sounds are clear. Patient still works and wants to get to work. He also stated he did not want to stay any longer in the hospital and wanted to do his echocardiogram as an outpatient. He was placed on metoprolol for rate control for which a prescription was written as well as low-dose furosemide prescription. Patient is going to follow up with his primary care provider and his consultant intern. Status at Discharge Cognitive/behavioral status at discharge: Awake alert oriented though he does have sundowning symptoms reported by slot shift manager Functional status at discharge: independent ambulation Overall status at discharge: patient is progressing back to baseline Time Spent with Patient Time attestation: Total time spent providing and/or coordinating discharge services: 35 minutes Time spent: Greater than 30 minutes Exam Narrative: GENERAL: Appears younger than stated age, well-nourished, fatigued appearing HEAD: Normocephalic, atraumatic. ENT:? Mucous membranes moist. CHEST: Clear to auscultation.? No respiratory distress. HEART: Irregular rate and irregularly irregular rhythm. ? Normal peripheral pulses. Atrial fibrillation with aberrant conduction with heart rate between 70 and 85 per telemetry monitoring by my own interpretation. ABDOMEN: Soft, nontender, nondistended. EXTREMITIES: Normal range of motion. Right lower extremity mildly swollen, Ede hose in place bilaterally SKIN: Warm dry normal color NEURO: Alert and oriented x3. PSYCH: Normal mood and affect DS: Data Data Completed and Pending Completed studies during hospitalization: Chest x-ray, chest CTA Pending studies at discharge: Echocardiogram which patient wants to obtain as an outpatient Labs on day of discharge: Labs from last 24 hours 12/11/23 12/10/23 12/10/23 04:27 06:18 06:18 WBC 5.1 RBC 4.55 L Hgb 12.0 L Hct 38.8 L MCV 85.3 MCH 26.4 MCHC 30.9 L RDW 15.0 H Plt Count 187 MPV 9.3 Immature Gran % (Auto) 0.2 Neut % (Auto) 61.8 Lymph % (Auto) 24.6 [place] % (Auto) 9.1 H Eos % (Auto) 3.5 Baso % (Auto) 0.8 Lymph # (Auto) 1.25 [place] # (Auto) 0.5 Eos # (Auto) 0.2 Baso # (Auto) 0.0 Abs Immat Gran (auto) 0.01 Absolute Neuts (auto) 3.1 Absolute Nucleated RBC 0.0 Nucleated RBC % 0.0 Sodium 140 Potassium 3.4 Chloride 108 H Carbon Dioxide 29 Anion Gap 3 L BUN 16 Creatinine 1.00 Estim Creat Clear Calc 77 Estimated GFR > 60 Glucose 131 H Calcium 8.7 Magnesium 2.0 Total Bilirubin 1.2 AST 26 ALT 22 Alkaline Phosphatase 53 Total Protein 5.0 L Albumin 3.2 L TSH (Reflex) 5.030 H Free T4 2.01 1.91 Total
== END 2023-12-11 15:05 | disposition home or self-care (01) ==
LOC: ANHED 12-10 00:09 → ANHIMU 12-11 12:01 → ANH3MEDSUR 12-13 08:09 → ANHIMU 12-13 08:09
PROVIDERS: Nurse Practitioner; Physician Assistant; Admitting Provider Student in an Organized Health Care Education/Training Program; Emergency Provider Emergency Medicine; Visit Provider Internal Medicine
DX: I48.91 Unspecified atrial fibrillation (principal); I51.7 Cardiomegaly; J90 Pleural effusion, not elsewhere classified; I50.9 Heart failure, unspecified; I82.402 Acute embolism and thrombosis of unspecified deep veins of left lower extremity; I31.39 Other pericardial effusion (noninflammatory); F03.90 Unspecified dementia, unspecified severity, without behavioral disturbance, psychotic disturbance, mood disturbance, and anxiety; N40.0 Benign prostatic hyperplasia without lower urinary tract symptoms; E03.9 Hypothyroidism, unspecified; E11.9 Type 2 diabetes mellitus without complications; Z98.62 Peripheral vascular angioplasty status; Z86.16 Personal history of COVID-19; Z79.01 Long term (current) use of anticoagulants; Z20.822 Contact with and (suspected) exposure to COVID-19; Z79.84 Long term (current) use of oral hypoglycemic drugs; Z79.899 Other long term (current) drug therapy
CPT/HCPCS: 36415; 71046; 71275; 80048; 80053; 81001; 83735; 83880; 84100; 84439; 84443; 84480; 84484; 85025; 85610; 85730; 87637; 93005; 96365; 96366; 96372; 96375; 96376; 97161; 97165; 99285; A9270; G0378; J1650; J1940; J3480; J7040; Q9967

== ENCOUNTER 2023-12-14 14:00 | Outpatient (CLI) | payer MEDICARE, SELFPAY ==
--- NOTE | 2023-12-14 14:27 | ECHO_ITS ---
Patient Info Name: Francisco Little Age: 78 years : 1945 Gender: Male Ht: 75 in Wt: 262 lbs BSA: 2.54 m2 HR: 82 bpm BP: 141 / 110 mmHg Heart Rhythm: Atrial Fibrillation Technical Quality: Good Exam Date: 12/14/2023 2:42 PM Exam Location: Echo Lab Patient Status: Outpatient Admit Date: 12/14/2023 Staff Ordering Physician: Andrew Lubin APRN Dairy Manager: Alka Myrick RDCS Attending Provider: Andrew Lubin APRN Referring Physician: Tristian JEFFERSON; Exam Type: CA echo doppler color flow Study Info Indications - HEART FAILURE, UNSPECIFIED Complete two-dimensional, color flow and Doppler transthoracic echocardiogram is performed. Summary 1. Complete two-dimensional, color flow and Doppler transthoracic echocardiogram is performed. 2. Left ventricular chamber dimension is mildly enlarged. 3. Left ventricular systolic function is mild to moderately reduced, estimated at 40-45%. 4. There is mildly increased left ventricular wall thickness. 5. The left ventricular diastolic function is indeterminate. 6. Right ventricular chamber dimension is mildly enlarged. 7. Right ventricular systolic function is mildly reduced. 8. Left atrial chamber dimension is severely enlarged. 9. Right atrial chamber dimension is severely enlarged. 10. There is mild to moderate mitral valve regurgitation. 11. There is mild to moderate tricuspid valve regurgitation. 12. Moderate pulmonary hypertension, estimated pulmonary arterial systolic pressure is 49 mmHg. Left Ventricle Left ventricular chamber dimension is mildly enlarged. Left ventricular systolic function is mild to moderately reduced, estimated at 40-45%. There is mildly increased left ventricular wall thickness. The left ventricular diastolic function is indeterminate. Right Ventricle Right ventricular chamber dimension is mildly enlarged. Right ventricular systolic function is mildly reduced. Left Atria Left atrial chamber dimension is severely enlarged. Right Atria Right atrial chamber dimension is severely enlarged. Aortic Valve The aortic valve is trileaflet. There is no aortic valve stenosis. There is trace aortic valve regurgitation. Pulmonic Valve The pulmonic valve is not well visualized. Mitral Valve The mitral valve has normal leaflets. There is mild to moderate mitral valve regurgitation. Tricuspid Valve The tricuspid valve leaflets are normal. There is mild to moderate tricuspid valve regurgitation. Moderate pulmonary hypertension, estimated pulmonary arterial systolic pressure is 49 mmHg. Pericardium/Pleural The pericardium appears normal. There is no pericardial effusion. Inferior Vena Cava Normal inferior vena cava with >50% collapse upon inspiration consistent with normal right atrial pressure, 5 mmHg. Aorta The aortic root size at the sinus of Valsalva is borderline dilated at 3.8cm. There is mild aortic atherosclerosis. Left Ventricular Outflow Tract Name Value Normal LVOT 2D LVOT Diameter 2.3 cm LVOT Doppler LVOT Peak Gradient 3 mmHg LVOT Mean Gradient 1 mmHg LVOT VTI 17 cm LVOT VTI/AV VTI Ratio
== END 2023-12-14 14:01 | disposition home or self-care (01) ==
PROVIDERS: Visit Provider Nurse Practitioner
DX: I48.11 Longstanding persistent atrial fibrillation (principal); R93.1 Abnormal findings on diagnostic imaging of heart and coronary circulation; I34.0 Nonrheumatic mitral (valve) insufficiency; I07.1 Rheumatic tricuspid insufficiency; I27.20 Pulmonary hypertension, unspecified
CPT/HCPCS: 93306

== ENCOUNTER 2024-03-12 10:10 | Inpatient (IN) | payer MEDICARE, SELFPAY ==
[2024-03-12] VITALS (9 sets, daily range): BP systolic 121–152; BP diastolic 95–115; PULSE 6–82; RESP 16–26; TEMP 36.1–36.5; O2SAT 92–99; BMI 29.7
--- NOTE | ~2024-03-12 | XR_ITS ---
EXAMINATION: XR chest 1V portable DATE: 03/12/2024 11:54 INDICATION: Dyspnea. TECHNIQUE: A single frontal view of the chest was obtained. COMPARISON: Chest 2 views 12/09/2023, chest CT 12/09/2023 FINDINGS: There are small right and moderate-sized left pleural effusions. There are airspace opaciti es at the lung bases. No pneumothorax. Cardiomegaly is noted. IMPRESSION: 1. Stable small right and moderate-sized left pleural effusions. 2. Worsened airspace opacities at the lung bases, consistent with atelectasis versus pneumonia. 3. Cardiomegaly. Reviewed, dictated and finalized at location A. IMPRESSION: 1. Stable small right and moderate-sized left pleural effusions. 2. Worsened airspace opacities at the lung bases, consistent with atelectasis v ersus pneumonia. 3. Cardiomegaly.
--- NOTE | ~2024-03-12 | US_ITS ---
EXAMINATION: US venous doppler [facility] DATE: 03/12/2024 17:15 INDICATION: Acute pulmonary emboli. TECHNIQUE: Grayscale ultrasound images without and with compression and Doppler ultrasound images of the bilateral lower extremity veins were obtained. COMPARISON: None. FINDINGS: The visualized portions of right common femoral vein, profunda (deep) femoral vein, and greater saphe nous vein outflow are patent. There is thrombus in the right femoral, popliteal, posterior tibial, pe roneal, and gastrocnemius veins. The visualized portions of left common femoral vein, profunda femoral vein, femoral vein, peroneal ve ins, posterior tibial veins, and greater saphenous vein outflow are patent. There is thrombus in the left popliteal vein. IMPRESSION: 1. Acute deep vein thrombosis in the bilateral lower limbs. Reviewed, dictated and finalized at location A.
--- NOTE | ~2024-03-12 | CT_ITS ---
EXAMINATION: CTA chest PE protocol DATE: 03/12/2024 12:22 INDICATION: Elevated d-dimer. Weakness. TECHNIQUE: Computed tomography angiography (CTA) of the chest was performed with 100 mL Omnipaque-350 intravenous contrast timed to evaluate the pulmonary arteries. Coronal maximum intensity projection 3D-reconstructions were created by the technologist. Automated exposure control and iterative reconst ruction technique were employed. Exam dose: 756.59 mGy-cm total exam DLP. COMPARISON: 03/12/2024 portable AP chest FINDINGS: There is diagnostic contrast enhancement of the pulmonary arteries. There are multiple left lower lobe pulmonary emboli and suggestion of some right lower lobe pulmonary emboli as well. Moderate bilateral pleural effusions with associated compressive atelectasis involving particularly t he medial lower lobes. Cardiomegaly. No pericardial effusion. No evidence of right heart strain. The ascending aorta measures 4 cm diameter. The aortic arch measures approximately 3.1 cm diameter. There are shotty nonenlarged mediastinal lymph nodes. Normal morphology of the adrenal glands. Approximately 2.3 cm medial segment left hepatic cyst. Prominent degenerative disc disease in the lower cervical spine. Diffuse idiopathic skeletal hyperost osis of the thoracic spine. IMPRESSION: Bilateral lower lobe pulmonary emboli Cardiomegaly Moderate bilateral pleural effusions with associated compressive atelectasis of the lower lobes in pa rticular Mild aortic aneurysm Reviewed, dictated and finalized at Location A. Reviewed, dictated and finalized at location B. IMPRESSION: Bilateral lower lobe pulmonary emboli Cardiomegaly Moderate bilateral pleural effusions with associated compressive atelectasis of the lower lobes in particular Mild aortic aneurysm
--- NOTE | ~2024-03-12 | CT_ITS ---
EXAMINATION: CT brain wo con DATE: 03/12/2024 12:21 INDICATION: Weakness. TECHNIQUE: Computed tomography (CT) of the head was performed without intravenous contrast. The mA wa s adjusted according to patient size. Iterative reconstruction technique was employed. The dose-lengt h product was 1513.33 mGy-cm. COMPARISON: None FINDINGS: There is a small old infarct in left cerebellum. There is an old infarct in right parietal lobe. There are scattered areas of low attenuation in the cerebral white matter. There is no intracra nial hemorrhage, acute infarction, or abnormal intracranial mass lesion. The ventricles are normal in size. The orbits are normal. There is mild mucosal thickening in the ethmoid sinuses. The mastoid ai r cells are normal. IMPRESSION: 1. 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 2. Moderate nonspecific cerebral white matter disease, which likely represents chronic small vessel i schemic disease. Reviewed, dictated and finalized at location A. IMPRESSION: 1. 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 2. Moderate nonspecific cerebral white matter disease, which likely represents chronic small vessel ischemic disease.
--- NOTE | 2024-03-12 10:41 | ECG_ITS ---
SEE SCANNED COPY FOR CONFIRMED REPORT MTDD
[2024-03-12 10:54] LABS: Glucose Point of Care 166 mg/dl (65-105)
[2024-03-12 11:04] LABS: Basophils Absolute Auto 0.1 K/mm3 (0.0-0.1); Basophils Percent Auto 0.9 % (0.2-1.2); Eosinophils Absolute Auto 0.2 K/mm3 (0-0.3); Eosinophils Percent Auto 3.7 % (0-4.4); Hematocrit 38.7 % (42.0-52.0); Hemoglobin 12.3 g/dL (14.0-18.0); Immature Granulocyte Absolute 0.01 K/mm3 (0.00-0.031); Immature Granulocyte Percent A 0.2 % (0-0.5); Lymphocytes Absolute Auto 1.31 K/mm3 (0.9-3.2); Mean Corpuscular HGB Conc 31.8 g/dl (32-36); Mean Corpuscular Hemoglobin 27.2 pg (26-34); Mean Corpuscular Volume 85.6 fl (80-100); Mean Platelet Volume 9.9 fl (7.4-10.4); Monocytes Absolute Auto 0.5 K/mm3 (0.1-0.6); Neutrophils Absolute Auto 3.4 K/mm3 (1.3-6.7); Neutrophils Percent Auto 62.2 % (45.5-73.1); Platelet Count Result 173 k/mm3 (150-375); Red Blood Count 4.52 M/mm3 (4.6-6.20); Red Cell Distribution Width 17.9 % (11.5-14.5); White Blood Count 5.5 K/mm3 (4.5-10.0)
[2024-03-12 11:14] LABS: Alanine Aminotransferase 19 U/L (6-50); Albumin Level 3.9 g/dL (3.5-5.1); Alkaline Phosphatase 46 U/L (38-126); Anion Gap 9 mmol/L (4-12); Aspartate Amino Transferase 23 U/L (17-59); Bilirubin,Total 1.1 mg/dL (0.2-1.3); Blood Urea Nitrogen 25 mg/dL (9-20); Calcium 9.1 mg/dL (8.4-10.2); Carbon Dioxide 23 mmol/L (22-30); Chloride 110 mmol/L (98-107); Estimated CRCL calculation 52 ml/min; Estimated Glomerular Filt Rate 59; Glucose 163 mg/dL (65-110); Lipase 76 U/L (23-300); Potassium 3.7 mmol/L (3.4-5.0); Sodium 142 mmol/L (137-145)
[2024-03-12 11:17] LABS: Magnesium 1.9 mg/dL (1.6-2.3)
[2024-03-12 11:27] LABS: NT Pro B Type Natriuretic Pept 6200 pg/mL (19.9-100)
[2024-03-12 11:28] LABS: D Dimer 1.28 ug/mL (<0.48); Troponin I 0.018 ng/mL (0.000-0.034)
--- NOTE | 2024-03-12 11:34 | ED.GENADULT ---
HPI - General Adult General Chief complaint: Weakness <Radha Tijerina, BIRD TENDER - Last Filed: 03/12/24 16:50> Stated complaint: weak <Radha Cam February, BIRD TENDER - Last Filed: 03/12/24 16:50> Time Seen by Provider: 03/12/24 10:39 <Radha Cam February, BIRD TENDER - Last Filed: 03/12/24 16:50> History of Present Illness HPI narrative: Francisco Little is a 79 y/o male who live alone at home, PMhx of Afib/ on Eliquis/ who presents wtih reports having feeling increased fatigue/ no energy that has progressively become worse over the past 9 months. He states he is eating and drinking/ no nausea/ vomiting/ no chest pain - when asked if he is getting SOB with exertion - he states that it is getting harder to complete his tasks at home and feels more worn out with exertion then SOB Last normal BM yesterday denies any blood in stools <Radha Cam February, BIRD TENDER - Last Filed: 03/12/24 16:50> Related Data Home medications: Home Medications Medication Instructions Recorded Confirmed apixaban 5 mg tablet (Eliquis) 5 mg PO BID 12/10/23 03/12/24 donepezil 10 mg tablet 10 mg PO DAILY 12/10/23 03/12/24 dutasteride 0.5 mg capsule 0.5 mg PO DAILY 12/10/23 03/12/24 levothyroxine 25 mcg tablet 25 mcg PO DAILY 12/10/23 03/12/24 metformin 500 mg tablet 500 mg PO BID 12/10/23 03/12/24 multivit with minerals-iron 18 1 tablet PO DAILY 12/10/23 03/12/24 mg-folic ac 400 mcg-vit K 25 mcg tablet (Adults Multivitamin) sennosides 8.6 mg tablet (Senna 8.6 mg PO DAILY 12/10/23 03/12/24 Lax) tamsulosin 0.4 mg capsule 0.4 mg PO DAILY 12/10/23 03/12/24 <Radha Tijerina, BIRD TENDER - Last Filed: 03/12/24 16:50> Allergies/adverse reactions: Allergies Allergy/AdvReac Type Severity Reaction Status Date / Time adhesive tape Allergy Rash Verified 03/12/24 14:31 latex AdvReac Unknown Verified 03/12/24 10:34 <Radha Cam February, - Last Filed: 03/12/24 16:50> Review of Systems Review of Systems: CONSTITUTIONAL: Denies fever, chills, or sweats.- Generally easily fatigued for the past 9 months that has been getting worse. EYES: Denies visual changes, redness, or discharge. ENT: Denies rhinorrhea, congestion, sore throat, or otalgia. CARDIOVASCULAR: Denies chest pain, palpitations, or edema. RESPIRATORY: Denies cough or dyspnea. GASTROINTESTINAL: Denies abdominal pain, nausea, vomiting, or diarrhea. GENITOURINARY: Denies dysuria or hematuria. SKIN: Denies rash or itching. MUSCULOSKELETAL: Denies back pain, joint pain, or myalgia. NEUROLOGIC: Denies headache, numbness, dizziness, or weakness. PSYCHIATRIC: Denies anxiety or depression. <Radha Cam February, - Last Filed: 03/12/24 16:50> [facility] Past Medical History Medical History: Medical History (Updated 03/12/24 @ 19:01 by Cyndi Joseph PA-C) Benign prostatic hyperplasia Chronic anticoagulation Deep venous thrombosis Dementia Gastroesophageal reflux disease Heart failure with reduced ejection fraction Echocardiogram in November 2023 showed bilateral ventricular enlargement with a LVEF 40 to 45% and mildly reduced right ventricular systolic function with severe biatrial enlargement and moderate pulmonary hypertension. Hypertension Hypothyroidism Osteoarthritis Paroxysmal atrial fibrillation Prediabetes <Radha Cam February, - Last Filed: 03/12/24 16:50> Surgical History Surgical History: Surgical History (Updated 03/12/24 @ 18:55 by Cyndi Joseph PA-C) History of hernia repair History of lumbar surgery <Radha Cam February, - Last Filed: 03/12/24 16:50> Family History Family History: Family History Father Alzheimer disease <Radha Cam February, Last Filed: 03/12/24 16:50> Social History Social History: Social History (Updated 03/12/24 @ 18:57 by Cyndi Joseph PA-C) Social History: Surrogate medical decision maker: Abner Kendall. Code status: Smoking status: Never smoker Alcohol intake: never
[2024-03-12 13:03] LABS: Appearance Urine Clear (Clear); Bacteria Urine None Seen /hpf; Bilirubin Urine Negative (Negative); Blood Urine Negative (Negative); Color Urine Yellow (Yellow); Glucose Urine UA Negative (Negative); Ketones Urine Negative (Negative); Leukocyte Esterase Ur Negative LEU/UL (Negative); Nitrate Urine Negative (Negative); Non Pathogenic Casts 0-2; Protein Urine Trace mg/dL (Negative); RBC Urine 0-2 /hpf (0-2); Squamous Epithelial Cell Urine None Seen /hpf (Few); Urobilinogen Urine 0.2 mg/dL (<2.0); WBC Urine 0-5 /hpf (0-3)
[2024-03-12 13:04] LABS: Add Urine Microscopic? YES; Specific Grav Ur 1.032 (1.001-1.035)
[2024-03-12] MEDS: ENOXAPARIN 80 MG/0.8 ML SYRINGE SUB-Q ×2 (13:42→23:33)
--- NOTE | 2024-03-12 14:47 | ADMGEN ---
This patient, Francisco Little, was admitted to 3 [facility] Surg Room 304-02. Patient/family oriented to hospital policies and general routines including ID bracelet, bed and alarms, visiting hours, pain management, procedures, bathroom and other care routines, personal items, smoking policy, room service/diet, and visiting hours. Information on how to activate the Rapid Response Team has been discussed. Patient/Family are encouraged to report perceived risks to care and to ask questions if they do not understand what they are told or what they should do. Report from Andrew.
[2024-03-12 15:05] LABS: Troponin I 0.018 ng/mL (0.000-0.034)
--- NOTE | 2024-03-12 15:35 | PC.NURSE ---
This nurse called Cyndi Joseph about pt BP 152/102. She stated she was not worried then hung up the phone. This nurse has no orders at this time. This nurse put in all of the patients home medications.
--- NOTE | 2024-03-12 16:08 | PM.IMHP ---
H&P: HPI History of Present Illness Date/Time: 03/12/24 16:15 Chief Complaint: Weakness. Narrative: This is a very pleasant 79-year-old male with dementia, hypertension, recurrent deep venous thromboses, atrial fibrillation, chronically anticoagulated with apixaban, heart failure with reduced right and left ventricular systolic function with an LVEF of 40 to 45%, borderline diabetes, hypothyroidism, and benign prostatic hyperplasia who presented to the emergency department for evaluation of weakness. The patient provides the following history. Over last 9 months or so he has noticed that he has become progressively more fatigued with decreased exercise tolerance and shortness of breath with exertion. It is to the point where he is having a harder time completing tasks at home. He came in today as the symptoms seem to have gotten worse in the last 3 days. He denies syncope, near syncope, fever, chills, sweats, sinus congestion sore throat chest pain, pleuritic pain, palpitations, orthopnea, paroxysmal nocturnal dyspnea, nausea, vomiting, sweats, and calf pain. In the ED: He was afebrile on arrival. Blood pressures have ranged from 127/103 to 150/97. EKG showed rate controlled atrial fibrillation with left bundle branch block. Labs were significant for a WBC count of 5.5, hemoglobin 12.3, hematocrit 30.7%, platelet 173, D-dimer 1.28, BUN 25, creatinine 1.20, proBNP 6200, troponin 0.018. UA was unremarkable. Chest CTA showed bilateral lower lobe pulmonary emboli with no evidence of right heart strain, cardiomegaly, and moderate bilateral pleural effusions. 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 He is being admitted in this setting for further treatment. Review of Systems Review of Systems: 12 systems were reviewed and are negative except for as per HPI. [facility] Past Medical History Medical History (Updated 03/12/24 @ 19:01 by Cyndi Joseph PA-C) Benign prostatic hyperplasia Chronic anticoagulation Deep venous thrombosis Dementia Gastroesophageal reflux disease Heart failure with reduced ejection fraction Echocardiogram in November 2023 showed bilateral ventricular enlargement with a LVEF 40 to 45% and mildly reduced right ventricular systolic function with severe biatrial enlargement and moderate pulmonary hypertension. Hypertension Hypothyroidism Osteoarthritis Paroxysmal atrial fibrillation Prediabetes Surgical History Surgical History (Updated 03/12/24 @ 18:55 by Cyndi Joseph PA-C) History of hernia repair History of lumbar surgery Family History Family History Father Alzheimer disease Social History Social History (Updated 03/12/24 @ 18:57 by Cyndi Joseph PA-C) Social History: Surrogate medical decision maker: Abner Kendall. Code status: Smoking status: Never smoker Alcohol intake: never Substance use: never Do You Feel Safe in your Home?: Yes Lack of Transportation: No Lack of Food: Never True Current Housing: I Have Housing Concerned About Future Housing: No Difficulty Paying Gas/Electric Bills: No Difficulty Paying for Meds: No Currently Unemployed: No Education: Don't Know Difficulty w/ Childcare or Family Care: Decline to Answer Additional living arrangements comments: Lives alone. Additional occupation/education comments: Doctorate degree in chemistry, still does research. Spiritual care concerns: No Meds Home Medications and Allergies Home Medications Medication Instructions Recorded Confirmed Type apixaban 5 mg tablet (Eliquis) 5 mg PO BID 12/10/23 03/12/24 History donepezil 10 mg tablet 10 mg PO DAILY 12/10/23 03/12/24 History dutasteride 0.5 mg capsule 0.5 mg PO DAILY 12/10/23 03/12/24 History levothyroxine 25 mcg tablet 25 mcg PO DAILY 12/10/23 03/12/24 History metformin 500 mg tablet 500 mg PO BID 12/10/23 03/12/24 History multivit with minerals-iro
[2024-03-12] MEDS: FUROSEMIDE INJ 40 MG/4 ML VIAL IV PUSH (19:16)
[2024-03-12 20:13] LABS: Glucose Point of Care 167 mg/dl (65-105)
[2024-03-13] VITALS (9 sets, daily range): BP systolic 131–160; BP diastolic 92–107; PULSE 60–98; RESP 16–22; TEMP 36.2–36.6; O2SAT 97–100
[2024-03-13] MEDS: LEVOTHYROXINE SODIUM 25 MCG TABLET PO (06:16)
[2024-03-13 06:23] LABS: Hematocrit 44.4 % (42.0-52.0); Hemoglobin 13.6 g/dL (14.0-18.0); Mean Corpuscular HGB Conc 30.6 g/dl (32-36); Mean Corpuscular Hemoglobin 26.7 pg (26-34); Mean Corpuscular Volume 87.2 fl (80-100); Mean Platelet Volume 9.9 fl (7.4-10.4); Platelet Count Result 186 k/mm3 (150-375); Red Blood Count 5.09 M/mm3 (4.6-6.20); Red Cell Distribution Width 17.7 % (11.5-14.5); White Blood Count 5.5 K/mm3 (4.5-10.0)
[2024-03-13 06:32] LABS: Hemoglobin A1C 6.8 % (<5.7)
[2024-03-13 06:33] LABS: Anion Gap 9 mmol/L (4-12); Blood Urea Nitrogen 20 mg/dL (9-20); Calcium 9.1 mg/dL (8.4-10.2); Carbon Dioxide 29 mmol/L (22-30); Chloride 104 mmol/L (98-107); Estimated CRCL calculation 56 ml/min; Estimated Glomerular Filt Rate 59; Glucose 128 mg/dL (65-110); Magnesium 1.8 mg/dL (1.6-2.3); Potassium 3.4 mmol/L (3.4-5.0); Sodium 142 mmol/L (137-145)
[2024-03-13 07:51] LABS: Glucose Point of Care 125 mg/dl (65-105)
--- NOTE | 2024-03-13 07:57 | PM.IMPN ---
Progress Note: A&P Assessment and Plan (1) Bilateral pulmonary embolism: Code(s): I26.99 - Other pulmonary embolism without acute cor pulmonale Status: Acute Assessment and Plan: Chest CTA 03/12: Bilateral lower lobe pulmonary emboli. Cardiomegaly. Moderate bilateral pleural effusions with associated compressive atelectasis of the lower lobes in particular. Mild aortic aneurysm. Patient was on eliquis 5 mg BID and states compliance. - enoxaparin 1 mg/kg BID - Coags: PT 16.8, INR 1.3, aPTT 37.4 - Hematology consulted. - Discussed patient case with Dr. Aparicio will likely be started on Xarelto with hypercoagulability testing done outpatient. We discussed the possibility of an IVC filter being placed as the patient has failed anticoagulation and has acute bilateral DVTs at this time as this further increases the patients risk of stroke and PE formation. Dr. Aparicio is agrees with this concern. - Surgery consulted for IVC filter placement. (2) Deep vein thrombosis of bilateral lower extremities: Code(s): I82.403 - Acute embolism and thrombosis of unspecified deep veins of lower extremity, bilateral Status: Acute Assessment and Plan: History of LLE DVT on 12/10 and diagnosed with new onset afib started on eliquis. Venous dopplers 03/12: Acute deep vein thrombosis in the bilateral lower limbs. Patient is on eliquis 5 mg BID and states compliance. - Enoxaparin 1 mg/kg BID - Coags: PT 16.8, INR 1.3, aPTT 37.4 - Hematology consulted. - Discussed patient case with Dr. Apariico will likely be started on Xarelto with hypercoagulability testing done outpatient. We discussed the possibility of an IVC filter being placed as the patient has failed anticoagulation and has acute bilateral DVTs at this time as this further increases the patients risk of stroke and PE formation. Dr. Aparicio is agrees with this concern. - Surgery consulted for IVC filter placement. (3) Heart failure with reduced ejection fraction: Code(s): I50.20 - Unspecified systolic (congestive) heart failure Status: Acute Assessment and Plan: Echo 12/14/23: LVEF 40-45% with mild to moderate mitral and tricuspid valve regurgitation, moderate pulmonary hypertension, and severely enlarged atrial chambers. - Echo 03/13/24: LVEF 20-25% with cardiomyopathy, and septal wall motion abnormality. - Cardiology consulted. - Continue lasix 20 mg daily (4) Atrial fibrillation: Code(s): I48.91 - Unspecified atrial fibrillation Status: Acute Assessment and Plan: - EKG 03/12/24: Atrial fibrillation LBB - Current home medication: rate controlled on metoprolol 25 mg daily and eliquis 5 mg BID (failed treatment) - Continue lovenox 1 mg/kg - Tele (5) Chronic anticoagulation: Code(s): Z79.01 - custodial (current) use of anticoagulants Status: Acute Assessment and Plan: Started on eliquis 5 mg BID in Nov 2023 due to new onset atrial fibrillation. Failed anticoagulation therapy. - Venous dopplers: Acute deep vein thrombosis in the bilateral lower limbs. - Chest CTA: Bilateral lower lobe pulmonary emboli, Cardiomegaly, Moderate bilateral pleural effusions with associated compressive atelectasis of the lower lobes in particular, Mild aortic aneurysm - Lovenox 1 mg/kg - Hematology following (6) Hypertension: Code(s): I10 - Essential (primary) hypertension Status: Acute Assessment and Plan: Stable on home medications. - metoprolol 25 mg daily - monitor (7) Prediabetes: Code(s): R73.03 - Prediabetes Status: Acute Assessment and Plan: - hypoglycemia protocol - POC blood glucose ACHS - home medication - metformin - correct regimen ordered - low dose TIDWM and HS - A1C 6.8 (8) Hypothyroidism: Code(s): E03.9 - Hypothyroidism, unspecified Status: Acute Assessment and Plan: Continue radha emedication. - Levothyroxine 25 mcg daily - TSH 5.090 - T4 pending Randy
[2024-03-13 08:49] LABS: INR 1.3; Prothrombin Time 16.8 Seconds (11.1-14.7)
[2024-03-13 08:50] LABS: Partial Thromboplastin Time 37.4 Seconds (22.3-36.8)
[2024-03-13] MEDS: DUTASTERIDE 0.5 MG CAPSULE PO (09:11)
[2024-03-13] MEDS: MULTIVITAMINS /C LUTEIN (CENTRUM SILVER) TABLET *BKC 1 TAB PO (09:11)
[2024-03-13] MEDS: METOPROLOL SUCCINATE EXT REL 25 MG TABCR PO (09:11)
[2024-03-13] MEDS: TAMSULOSIN HCL 0.4 MG CAPSULE PO (09:11)
[2024-03-13] MEDS: FUROSEMIDE INJ 40 MG/4 ML VIAL IV PUSH ×2 (09:11→17:24)
[2024-03-13] MEDS: SENNOSIDES 8.6 MG TABLET PO (09:11)
[2024-03-13] MEDS: DONEPEZIL HCL 10 MG TABLET PO (09:11)
--- NOTE | 2024-03-13 09:41 | PDONCCN ---
HPI - Date of Consult Date/Time: 03/13/24 17:43 <John Aparicio - 03/13/24 17:47> 03/13/24 09:42 <Jayda Seymour - 03/13/24 09:43> Requesting Physician: Tom Ventura MD <John Aparicio - 03/13/24 17:47> Tom Ventura MD <aJyda Seymour - 03/13/24 09:43> Primary Care Provider: UNKNOWN,DOCTOR <John Aparicio - 03/13/24 17:47> UNKNOWN,DOCTOR <Jayda Seymour - 03/13/24 09:43> - Consult Narrative Reason for consult: Pulmonary Embolism <Jayda Seymour - 03/13/24 09:43> Narrative: Francisco Little is a 79 year old male <John Aparicio - 03/13/24 17:47> Francisco Little is a 79 year old male with a past medical history of dementia, hypertension, recurrent deep venous thromboses, atrial fibrillation, chronically anticoagulated with apixaban, heart failure with reduced right and left ventricular systolic function with an LVEF of 40 to 45%, borderline diabetes, hypothyroidism, and benign prostatic hyperplasia who presented to the emergency department for evaluation of weakness. He states this has been ongoing for some months but has progressively gotten worse. He reports [facility] healthcare sent him and felt like he needed an evaluation. Recent CTA shows bilateral lower lobe pulmonary emboli, cardiomegaly, moderate bilateral pleural effusions with associated compressive atelectasis of the lower lobes in particular, and mild aortic aneurysm. There are bilateral deep vein thrombosis in his lower extremities as well. He reports having thrombosis last year after having a COVID infection. He was put on Eliquis about a year ago and has been taking it everyday. He denies any family history of blood clots. He denies any recent surgeries, or any prolong travel. Denies any hormone use. Denies any smoking history. He has become progressively weaker and more immobile. He has a history of skin cancer removal. He reports fatigue, SOB, and intentional weight loss. Denies any cough, bleeding, fevers, or night sweats. <Jayda Seymour - 03/13/24 09:46> Review of Systems - Review of Systems All systems reviewed & are unremarkable except as noted in HPI and bel <Jayda Seymour - 03/13/24 09:50> [facility] Medical History: Medical History (Last Updated 03/12/24 @ 18:59 by Cyndi Joseph PA-C) Benign prostatic hyperplasia Chronic anticoagulation Deep venous thrombosis Dementia Gastroesophageal reflux disease Heart failure with reduced ejection fraction Echocardiogram in November 2023 showed bilateral ventricular enlargement with a LVEF 40 to 45% and mildly reduced right ventricular systolic function with severe biatrial enlargement and moderate pulmonary hypertension. Hypertension Hypothyroidism Osteoarthritis Paroxysmal atrial fibrillation Prediabetes <John Aparicio - 03/13/24 17:47> Medical History (Last Updated 03/12/24 @ 18:59 by Cyndi Joseph PA-C) Benign prostatic hyperplasia Chronic anticoagulation Deep venous thrombosis Dementia Gastroesophageal reflux disease Heart failure with reduced ejection fraction Echocardiogram in November 2023 showed bilateral ventricular enlargement with a LVEF 40 to 45% and mildly reduced right ventricular systolic function with severe biatrial enlargement and moderate pulmonary hypertension. Hypertension Hypothyroidism Osteoarthritis Paroxysmal atrial fibrillation Prediabetes <Jayda Seymour - 03/13/24 09:43> Surgical History: Surgical History (Last Updated 03/12/24 @ 18:55 by Cyndi Joseph PA-C) History of hernia repair History of lumbar surgery <John Aparicio - 03/13/24 17:47> Surgical History (Last Updated 03/12/24 @ 18:55 by Cyndi Joseph PA-C) History of hernia repair History of lumbar surgery <Jayda Seymour - 03/13/24 09:43> Family History: Family History (Last Reviewed 03/12/24 @ 18:55 by Cyndi Joseph PA-C) Father Alzheimer disease
[2024-03-13 10:20] LABS: Free T4 Free Thyroxine Reflex 1.47 ng/dL (0.78-2.19)
[2024-03-13 11:50] LABS: Glucose Point of Care 224 mg/dl (65-105)
[2024-03-13 13:00] LABS: Total Triiodothyronine (T3) 0.94 NG/ML (0.97-1.69)
[2024-03-13] MEDS: INSULIN ASPART (*BKC) 100 UNITS/ML SUB-Q (13:04)
[2024-03-13] MEDS: ENOXAPARIN 80 MG/0.8 ML SYRINGE SUB-Q (13:04)
--- NOTE | 2024-03-13 16:08 | ECHO_ITS ---
Patient Info Name: Francisco Little Age: 79 years : 1945 Gender: Male Ht: 76 in Wt: 244 lbs BSA: 2.46 m2 HR: 97 bpm BP: 131 / 107 mmHg Heart Rhythm: Left Bundle Branch Block, Atrial Fibrillation Technical Quality: Fair Exam Date: 03/13/2024 10:00 AM Exam Location: Echo Lab Patient Status: Outpatient Admit Date: 03/12/2024 Staff Ordering Physician: Cyndi Joseph PA-C Ocularist: Janeth Anguiano RDCS Attending Provider: Tom Ventura MD Referring Physician: Jake EARLY; Exam Type: CA echo doppler color flow Study Info Indications I27.82 - Chronic pulmonary embolism I10 - Essential (primary) hypertension Complete two-dimensional, color flow and Doppler transthoracic echocardiogram is performed. Summary 1. Left ventricular chamber dimension is normal. 2. Left ventricular systolic function is severely reduced, estimated at 20-25%. 3. There is mildly increased left ventricular wall thickness. 4. Left ventricular septal wall motion is abnormal with septal motion related to bundle branch block. 5. Right ventricular chamber dimension is mildly enlarged. 6. Right ventricular systolic function is reduced. 7. Left atrial chamber dimension is severely enlarged. 8. Right atrial chamber dimension is severely enlarged. 9. There is moderate mitral valve regurgitation, which may be underestimated due to the eccentricity of the jet. 10. There is moderate tricuspid valve regurgitation. 11. Left pleural effusion noted. Left Ventricle Left ventricular chamber dimension is normal. Left ventricular systolic function is severely reduced, estimated at 20-25%. There is mildly increased left ventricular wall thickness. Left ventricular septal wall motion is abnormal with septal motion related to bundle branch block. Right Ventricle Right ventricular chamber dimension is mildly enlarged. Right ventricular systolic function is reduced. Left Atria Left atrial chamber dimension is severely enlarged. Right Atria Right atrial chamber dimension is severely enlarged. Atrial Septum Intact interatrial septum visualized by color flow imaging. Aortic Valve The aortic valve is trileaflet. There is no aortic valve regurgitation. There is mild aortic valve calcification. Pulmonic Valve The pulmonic valve is not well visualized. Mitral Valve There is moderate mitral valve regurgitation, which may be underestimated due to the eccentricity of the jet. Tricuspid Valve There is moderate tricuspid valve regurgitation. Pericardium/Pleural Left pleural effusion noted. There is no pericardial effusion. Inferior Vena Cava Dilated inferior vena cava with >50% collapse upon inspiration consistent with elevated right atrial pressure, 8 mmHg. Aorta The aortic root size at the sinus of Valsalva is normal. Left Ventricular Outflow Tract Name Value Normal LVOT 2D LVOT Diameter 2.1 cm LVOT Doppler LVOT Peak Gradient 1 mmHg LVOT Mean Gradient 1 mmHg LVOT VTI 11 cm LVOT VTI/AV VTI Ratio 0.8 LVOT Stroke Volume 37 ml LVOT CO 2.4
[2024-03-13 16:30] LABS: Glucose Point of Care 137 mg/dl (65-105)
[2024-03-13 23:52] LABS: Glucose Point of Care 160 mg/dl (65-105)
[2024-03-14] VITALS (12 sets, daily range): BP systolic 126–137; BP diastolic 82–99; PULSE 64–81; RESP 12–20; TEMP 36.2–36.6; O2SAT 96–99
[2024-03-14] MEDS: ENOXAPARIN 80 MG/0.8 ML SYRINGE SUB-Q (00:20)
[2024-03-14 06:04] LABS: Hematocrit 39.6 % (42.0-52.0); Hemoglobin 12.6 g/dL (14.0-18.0); Mean Corpuscular HGB Conc 31.8 g/dl (32-36); Mean Corpuscular Volume 84.8 fl (80-100); Mean Platelet Volume 9.8 fl (7.4-10.4); Platelet Count Result 162 k/mm3 (150-375); Red Blood Count 4.67 M/mm3 (4.6-6.20); Red Cell Distribution Width 17.2 % (11.5-14.5)
[2024-03-14] MEDS: LEVOTHYROXINE SODIUM 25 MCG TABLET PO (06:15)
[2024-03-14 06:36] LABS: Alanine Aminotransferase 16 U/L (6-50); Albumin Level 3.4 g/dL (3.5-5.1); Alkaline Phosphatase 50 U/L (38-126); Anion Gap 6 mmol/L (4-12); Aspartate Amino Transferase 21 U/L (17-59); Bilirubin,Total 1.3 mg/dL (0.2-1.3); Blood Urea Nitrogen 17 mg/dL (9-20); Calcium 8.6 mg/dL (8.4-10.2); Carbon Dioxide 31 mmol/L (22-30); Chloride 103 mmol/L (98-107); Estimated CRCL calculation 60 ml/min; Estimated Glomerular Filt Rate > 60; Glucose 130 mg/dL (65-110); Potassium 2.7 mmol/L (3.4-5.0); Sodium 140 mmol/L (137-145)
[2024-03-14 07:54] LABS: Glucose Point of Care 136 mg/dl (65-105)
[2024-03-14] MEDS: DUTASTERIDE 0.5 MG CAPSULE PO (09:05)
[2024-03-14] MEDS: METOPROLOL SUCCINATE EXT REL 25 MG TABCR PO (09:05)
[2024-03-14] MEDS: MULTIVITAMINS /C LUTEIN (CENTRUM SILVER) TABLET *BKC 1 TAB PO (09:05)
[2024-03-14] MEDS: FUROSEMIDE INJ 40 MG/4 ML VIAL IV PUSH (09:05)
[2024-03-14] MEDS: DONEPEZIL HCL 10 MG TABLET PO (09:05)
[2024-03-14] MEDS: SENNOSIDES 8.6 MG TABLET PO (09:06)
[2024-03-14] MEDS: TAMSULOSIN HCL 0.4 MG CAPSULE PO (09:07)
[2024-03-14] MEDS: POTASSIUM CHLORIDE INJ 40 MEQ in SODIUM CHLORIDE 0.9% IV 500 ML 130 MEQ IVPB (09:10)
--- NOTE | 2024-03-14 10:10 | PM.CNGS ---
Assessment and Plan Assessment and plan (1) Deep vein thrombosis of bilateral lower extremities: Code(s): I82.403 - Acute embolism and thrombosis of unspecified deep veins of lower extremity, bilateral Status: Acute Assessment and Plan: Patient with recurring DVT/PE on oral anticoagulation. Hematology working up for hypergoagulable state and recommended Lovenox 1mg/kg x 4 weeks before switching back to oral anticoagulation therapy, but patient is refusing to continue Lovenox injections after discharge. Hematology now recommending IVC filter placement while continuing long-term oral anticoagulation, as he has failed oral anticoagulation therapy with recurrence. I discussed these recommendations with the patient and the details of IVC filter placement. Description of the procedure, risks, benefits, alternatives, and expected outcomes were discussed with the patient in detail. He agrees to proceed. We will hold his Lovenox this morning and try adding him onto the schedule later today. 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 Laureano. History of Present Illness Consult details Consult date: 03/14/24 Reason for consult: other (IVC filter placement) Requesting physician: Ines Smith PA-C Narrative: This is a 79-year-old man with a past medical history of dementia, hypertension, recurrent deep venous thromboses, atrial fibrillation, chronically anticoagulated with apixaban, heart failure with reduced ejection fraction, and multiple other medical problems, who we have been asked to see in surgical consultation for request of IVC filter placement. He has a history of DVTs after having COVID last year and was taking apixaban and reportedly compliant. He reports having some shortness of breath, generalized weakness, and confusion recently and was instructed by his PCP to come to the ER for evaluation. Workup showed bilateral lower lobe pulmonary emboli on CTA, as well as cardiomegaly, moderate bilateral pleural effusions with associated compressive atelectasis of the lower lobes in particular, and mild aortic aneurysm. Lower extremity ultrasound showed bilateral lower extremity deep vein thrombosis. He has failed oral anticoagulation with recurrent DVTs without obvious provoking factors. He was started on therapeutic Lovenox injections. Hematology was consulted and patient is refusing to continue his Lovenox injections on discharge, therefore Hematology recommends IVC filter placement and continuing oral anticoagulation since he is refusing the Lovenox. He is now seen on the medical floor. Review of Systems Review of Systems: All systems reviewed & are unremarkable except as noted in HPI and below PMFSH Past Medical History Medical History Benign prostatic hyperplasia Chronic anticoagulation Deep venous thrombosis Dementia Gastroesophageal reflux disease Heart failure with reduced ejection fraction Echocardiogram in November 2023 showed bilateral ventricular enlargement with a LVEF 40 to 45% and mildly reduced right ventricular systolic function with severe biatrial enlargement and moderate pulmonary hypertension. Hypertension Hypothyroidism Osteoarthritis Paroxysmal atrial fibrilla
--- NOTE | 2024-03-14 10:13 | PM.CNCAR ---
Assessment and Plan Assessment and plan (1) Atrial fibrillation: Code(s): I48.91 - Unspecified atrial fibrillation Status: Acute (2) Heart failure with reduced ejection fraction: Code(s): I50.20 - Unspecified systolic (congestive) heart failure Status: Acute Plan This is a 79-year-old man brought to the hospital apparently because of increasing confusion. He is known to have atrial fibrillation at least for several months he also has chronic left bundle branch block and is now known to have left ventricular systolic dysfunction. He does have some evidence of CHF on his x-ray but has really no complaints of decompensated heart failure. I will recommend continuing the modest dose of his metoprolol, adding Entresto and spironolactone today for more effective guideline directed medical therapy of his low ejection fraction. Regarding his anticoagulation I am going to initiate PE dosage of Xarelto at 15 mg twice daily for the next 3 weeks reduced to 20 mg daily after that. According to the hematology consultation they plan to consider hypercoagulable workup the patient after he recovers from this current hospitalization. Because of his age and frailty I would anticipate a conservative/non invasive approach to his treatment. Jaime Crowell MD [facility] History of Present Illness History of Present Illness Consult date/time: 03/14/24 10:13 Reason For Visit: Pulmonary Embolism Narrative: This is a 79-year-old man I am seeing at the request of the hospitalist because of atrial fibrillation and reduced left ventricular systolic function. The patient is known to me from a consultation I saw him in November of this year at this hospital because of atrial fibrillation of unknown onset/duration. Patient is currently comfortable 304 visiting with a friend from evangelical. Most of the history is supplied by the friend who is with him today. The patient apparently was at a evangelical in [facility] some sort of picnic where he was felt to be confused with some altered mental status according to some friends that know him. He says that he EMS was called to the scene and they evaluated his condition and did not find it necessary to bring him to the hospital. He drove him and because of this his primary care physician was contacted and he was advised to come to the emergency room. He offers no complaints of shortness of breath orthopnea PND edema palpitations or syncope. He is not having any chest pain. When I saw him in November he was as stated above found to be in atrial fibrillation of unknown duration which was asymptomatic. He was on a low dose of metoprolol and he was on anticoagulation with apixaban. He charged to home before his echo, as it was his does to he to have an outpatient workup. The echocardiogram at that time demonstrated some LV enlargement with an ejection fraction echo from yesterday shows worsening of this when the ejection fraction of 20-25%. His ECG atrial fibrillation with left bundle branch block morphology which is unchanged. His chest x-ray shows some enlargement of the cardiac silhouette and bilateral basilar pulmonary congestion. The patient is a gentleman who lives alone he does not have any family in the area but does have friends from his evangelical as mentioned above. He still lives in his own home and lives independently. Despite being anticoagulated his evaluation here also she appears to show evidence of ongoing DVT bilateral pulmonary emboli. There was a hematology consult placed yesterday which did not leave any recommendations regarding alternative anticoagulation strategy. The because of the progression in his DVT/PE wall taking apixaban for the time being he was placed on therapeutic dose of Lovenox. Review of Systems Constitutional: Constitutional: Reports weakness Eyes: Eyes: Reports no additional eye complaints ENT: Reports system reviewed and no additional complaints, exce
--- NOTE | 2024-03-14 11:24 | PCPTNOTE ---
pt refused physical therapy evaluation, states he will not be getting up or walking d/t not feeling well, this PT informed the pt on the importance of participating in therapy and walking, pt still refused, will follow
[2024-03-14 11:37] LABS: Glucose Point of Care 250 mg/dl (65-105)
--- NOTE | 2024-03-14 12:03 | PC.NURSE ---
Pt able to answer all orientation questions to sign consent for IVC filter. Pt aware of place, time, situation and person.
--- NOTE | 2024-03-14 12:11 | PM.IMPN ---
Progress Note: A&P Assessment and Plan (1) Bilateral pulmonary embolism: Code(s): I26.99 - Other pulmonary embolism without acute cor pulmonale Status: Acute Assessment and Plan: Chest CTA 03/12: Bilateral lower lobe pulmonary emboli. Cardiomegaly. Moderate bilateral pleural effusions with associated compressive atelectasis of the lower lobes in particular. Mild aortic aneurysm. Patient was on eliquis 5 mg BID and states compliance. - enoxaparin transition to Xarelto on 03/14 - Hematology consulted. - Hypercoagulability testing done outpatient. We discussed the possibility of an IVC filter being placed as the patient has failed anticoagulation and has acute bilateral DVTs at this time as this further increases the patients risk of stroke and PE formation. Dr. Aparicio is agrees with this concern. - Surgery consulted for IVC filter placement. - Plan for IVC filter placement later this afternoon. (2) Deep vein thrombosis of bilateral lower extremities: Code(s): I82.403 - Acute embolism and thrombosis of unspecified deep veins of lower extremity, bilateral Status: Acute Assessment and Plan: History of LLE DVT on 12/10 and diagnosed with new onset A fib started on Eliquis. Venous Doppler 03/12: Acute deep vein thrombosis in the bilateral lower limbs. Patient is on Eliquis 5 mg BID and states compliance. - enoxaparin transition to Xarelto on 03/14 - Hematology consulted. - Surgery consulted for IVC filter placement and plan for placement this afternoon. (3) Heart failure with reduced ejection fraction: Code(s): I50.20 - Unspecified systolic (congestive) heart failure Status: Acute Assessment and Plan: Echo 12/14/23: LVEF 40-45% with mild to moderate mitral and tricuspid valve regurgitation, moderate pulmonary hypertension, and severely enlarged atrial chambers. - Echo 03/13/24: LVEF 20-25% with cardiomyopathy, and septal wall motion abnormality. - Cardiology consulted. - Continue metoprolol and add Entresto and spironolactone (4) Atrial fibrillation: Code(s): I48.91 - Unspecified atrial fibrillation Status: Acute Assessment and Plan: - EKG 03/12/24: Atrial fibrillation LBB - Current home medication: rate controlled on metoprolol 25 mg daily and eliquis 5 mg BID (failed treatment) - 03/14 transition to Xarelto from Lovenox - Tele (5) Chronic anticoagulation: Code(s): Z79.01 - termite treater helper (current) use of anticoagulants Status: Acute Assessment and Plan: Started on eliquis 5 mg BID in Nov 2023 due to new onset atrial fibrillation. Failed anticoagulation therapy. - Venous dopplers: Acute deep vein thrombosis in the bilateral lower limbs. - Chest CTA: Bilateral lower lobe pulmonary emboli, Cardiomegaly, Moderate bilateral pleural effusions with associated compressive atelectasis of the lower lobes in particular, Mild aortic aneurysm - Enoxaparin transition to Xarelto on 03/14 - Hematology following (6) Hypertension: Code(s): I10 - Essential (primary) hypertension Status: Acute Assessment and Plan: Stable on home medications. - metoprolol 25 mg daily - monitor (7) Prediabetes: Code(s): R73.03 - Prediabetes Status: Acute Assessment and Plan: - hypoglycemia protocol - POC blood glucose ACHS - home medication - metformin - correct regimen ordered - low dose TIDWM and HS - A1C 6.8 (8) Hypothyroidism: Code(s): E03.9 - Hypothyroidism, unspecified Status: Acute Assessment and Plan: Continue radha emedication. Subjective Date/time seen: 03/14/24 12:11 Interval history: Patient slightly confused today. He is able to tell me where he is and why he is in the hospital [facility] on the year. His friend is at bedside. Discussed getting a POA for the patient and they are going to work on this. Patient does not have any living family. He denies any chest pain, shortness a breath or lower extr
--- NOTE | 2024-03-14 12:13 | WPDHPUPDATE1 ---
History and Physical Update Update Date/Time: 03/14/24 12:13 History and Physical has been reviewed, including an updated exam of the patient. There are NO changes in the patient's condition. Risks, benefits, and alternatives have been discussed and questions answered. Patient agrees to proceed with procedure.
--- NOTE | 2024-03-14 13:32 | W.PM.PROC2 ---
Procedure Note - Detailed Date of Procedure 03/14/24 Pre-op Diagnosis Pulmonary Embolism Post-op Diagnosis Same Procedure Performed IVC filter placement using ultrasound and fluoroscopic guidance Surgeon Ronni Laureano, DO Anesthesia Local (1% Lidocaine) Indications this is a 79-year-old man who presented to the hospital with pulmonary embolus and DVTs. He was already on Eliquis but developed the pulmonary embolus despite this. The patient was seen by Hematology and Lovenox injections were recommended but patient did want to comply with this at home. Decision was then made to proceed with inferior vena cava filter placement. Findings Sinosite ultrasound was used to identify the right femoral vein. This was visualized as a compressible vessel just medial to the pulsatile femoral artery. The 18 gauge introducer needle was advanced under ultrasound guidance. Fluoroscopy was then used to guide advancement of the guidewire followed by the dilator and sheath. Final fluoroscopic images demonstrated the filter in proper position at the level of the L3 vertebral body. Description of Procedure Patient was brought back to cath lab radiological technologist suite. He was placed supine cath lab radiological technologist table. Time-out was done to confirm patient procedure. His right groin was prepped and draped in sterile fashion using chlorhexidine prep. SonoSite ultrasound was used to identify the right femoral vein. This was visualized as a compressible vessel just medial to the right femoral artery. 1% lidocaine was infiltrated directly over this area. An 18 gauge introducer needle was then advanced under ultrasound guidance directly into the lumen of the right femoral vein. Dark nonpulsatile blood was aspirated. A 0.035 in guidewire was advanced through the needle under fluoroscopic guidance. The guidewire advanced smoothly and was visualized advancing up into the inferior vena cava. The needle was withdrawn leaving the guidewire in place. A small malaika incision was made at the insertion site using an 11 blade scalpel. The 8French dilator and sheath were then advanced over the guidewire under fluoroscopic guidance. The sheath was advanced up to the L3 vertebral body, and then once the sheath was at the upper portion of the L3 vertebral body, the dilator and guidewire were removed. The IVC filter was then inserted into the end of the sheath and then the plunger was used to carefully advanced the filter up the length of the sheath. Once the filter was visualized under fluoroscopy at the tip of the sheath, the sheath was slowly withdrawn to allow the filter to deploy. Once the filter was completely expanded, the sheath was removed and pressure was applied at the insertion site. One final fluoroscopic image was obtained visualizing the IVC filter and proper orientation overlying the L3 vertebral body. After holding pressure for 5 minutes, there is no further blood loss and a sterile dressing was applied. Implants Kimber IVC Filter Estimated Blood Loss 2 Urine Output 200 Complications No immediate complications Condition Stable Disposition Floor AM [facility] Surgery - Charge Forward: Surgery Billing
[2024-03-14 15:35] LABS: Potassium 3.7 mmol/L (3.4-5.0)
[2024-03-14 16:37] LABS: Glucose Point of Care 150 mg/dl (65-105)
[2024-03-14] MEDS: SACUBITRIL/VALSARTAN 24-26 MG TABLET 1 TAB PO ×2 (17:33→20:35)
[2024-03-14] MEDS: POTASSIUM CHLORIDE 20 MEQ ER TABLET 40 MEQ PO (17:34)
[2024-03-14] MEDS: TOLNAFTATE 1% POWDER 45 GM BTL 1 APPLIC TOPICAL ×2 (17:34→20:36)
[2024-03-14] MEDS: RIVAROXABAN 15 MG TABLET PO (17:34)
[2024-03-14 20:21] LABS: Glucose Point of Care 173 mg/dl (65-105)
[2024-03-15] VITALS (10 sets, daily range): BP systolic 111–161; BP diastolic 83–119; PULSE 51–98; RESP 12–18; TEMP 35.7–36.4; O2SAT 96–99
[2024-03-15 06:13] LABS: Hematocrit 41.8 % (42.0-52.0); Hemoglobin 13.1 g/dL (14.0-18.0); Mean Corpuscular HGB Conc 31.3 g/dl (32-36); Mean Corpuscular Volume 86.2 fl (80-100); Mean Platelet Volume 10.1 fl (7.4-10.4); Platelet Count Result 171 k/mm3 (150-375); Red Blood Count 4.85 M/mm3 (4.6-6.20); Red Cell Distribution Width 17.2 % (11.5-14.5); White Blood Count 5.5 K/mm3 (4.5-10.0)
[2024-03-15 06:22] LABS: Alanine Aminotransferase 15 U/L (6-50); Albumin Level 3.4 g/dL (3.5-5.1); Alkaline Phosphatase 46 U/L (38-126); Anion Gap 5 mmol/L (4-12); Aspartate Amino Transferase 23 U/L (17-59); Bilirubin,Total 1.3 mg/dL (0.2-1.3); Blood Urea Nitrogen 14 mg/dL (9-20); Calcium 8.5 mg/dL (8.4-10.2); Carbon Dioxide 30 mmol/L (22-30); Chloride 103 mmol/L (98-107); Estimated CRCL calculation 66 ml/min; Estimated Glomerular Filt Rate > 60; Glucose 135 mg/dL (65-110); Potassium 3.1 mmol/L (3.4-5.0); Sodium 138 mmol/L (137-145)
[2024-03-15] MEDS: RIVAROXABAN 15 MG TABLET PO ×2 (06:24→17:42)
[2024-03-15] MEDS: LEVOTHYROXINE SODIUM 25 MCG TABLET PO (06:24)
[2024-03-15 07:26] LABS: Glucose Point of Care 139 mg/dl (65-105)
[2024-03-15] MEDS: POTASSIUM CHLORIDE INJ 40 MEQ in SODIUM CHLORIDE 0.9% IV 500 ML 130 MEQ IVPB (09:13)
[2024-03-15] MEDS: SACUBITRIL/VALSARTAN 24-26 MG TABLET 1 TAB PO ×2 (09:15→22:13)
[2024-03-15] MEDS: SENNOSIDES 8.6 MG TABLET PO (09:15)
[2024-03-15] MEDS: DUTASTERIDE 0.5 MG CAPSULE PO (09:15)
[2024-03-15] MEDS: MULTIVITAMINS /C LUTEIN (CENTRUM SILVER) TABLET *BKC 1 TAB PO (09:15)
[2024-03-15] MEDS: TAMSULOSIN HCL 0.4 MG CAPSULE PO (09:15)
[2024-03-15] MEDS: METOPROLOL SUCCINATE EXT REL 25 MG TABCR PO (09:15)
[2024-03-15] MEDS: SPIRONOLACTONE 25 MG TABLET PO (09:15)
[2024-03-15] MEDS: TOLNAFTATE 1% POWDER 45 GM BTL 1 APPLIC TOPICAL ×2 (09:16→21:20)
[2024-03-15] MEDS: DONEPEZIL HCL 10 MG TABLET PO (09:16)
--- NOTE | 2024-03-15 10:22 | PM.PNCARD ---
Progress Note: A&P Assessment and Plan (1) Atrial fibrillation: Code(s): I48.91 - Unspecified atrial fibrillation Status: Acute Assessment and Plan: History of atrial fibrillation. Rate controlled and anticoagulated. Continue current medical regimen without change. (2) Heart failure with reduced ejection fraction: Code(s): I50.20 - Unspecified systolic (congestive) heart failure Status: Acute Assessment and Plan: Severe, EF 20-25%. Does not appear to be in decompensated heart failure at this point. Continue GDMT with Entresto, Toprol XL, and spironolactone. BP and renal function stable K+ this morning 3.1 and has been replaced (3) Bilateral pulmonary embolism: Code(s): I26.99 - Other pulmonary embolism without acute cor pulmonale Status: Acute Assessment and Plan: DVT and bilateral pulmonary emboli. S/p IVC filter placement and on a/c. Subjective Date/time seen: 03/15/24 10:22 Interval history: Cardiology follow up for Afib, CHF, cardiomyopathy Feels okay today. States he is weak/tired. No shortness of breath, chest pain, palpitations. Review of Systems Constitutional: Constitutional: Reports weakness Eyes: Eyes: Reports no additional eye complaints ENT: Reports system reviewed and no additional complaints, except as documented Cardiovascular: Cardiovascular: Reports as per HPI Respiratory: Respiratory: Reports no additional respiratory complaints Gastrointestinal: Gastrointestinal: Reports no additional gastrointestinal complaints Musculoskeletal: Musculoskeletal: Reports no additional musculoskeletal complaints Integumentary/Breasts: Skin/Breast: Reports system reviewed and no additional complaints, except as docu Neurologic: Reports as per HPI, Reports confusion and Reports weakness Psychiatric: Psychiatric: Reports confusion Endocrine: Endocrine: Reports no additional endocrine complaints Hematologic/Lymphatic: Hematologic/Lymphatic: Reports no additional hematologic/lymphatic complaints Allergic/Immunologic: Allergic/Immunologic: Reports no additional allergic/immunologic complaints Exam Const: General: comfortable, no acute distress and confusion Orientation/consciousness: confusion Other: Pleasant elderly man sitting in the bedside chair no distress HENMT: Mouth: Yes moist mucous membranes Eyes: Sclera: sclerae normal Neck: Neck: supple and no JVD Resp: Effort & Inspection: normal respiratory effort Other: Dullness at the bases bilaterally a few inspiratory rales are noted, no wheeze Cardio: Rate: regular rate Rhythm: abnormal rhythm irregularly irregular Other: No audible murmur GI: Auscultation: normal bowel sounds Skin: General skin exam: normal color Neuro: General: confusion Other: Alert and oriented x3 Extrem: Other: Adequate perfusion, no perceptible edema Objective Data Vital Signs Vital Signs: Vital Signs - 24 hr 03/14/24 12:00 03/14/24 16:30 03/14/24 16:00 Temperature 36.6 C Pulse Rate 67 77 81 Respiratory Rate 20 Blood Pressure 126/90 Pulse Oximetry 97 Oxygen Delivery Fraction of Inspired Oxygen 03/14/24 19:47 03/14/24 20:00 03/14/24 23:53 Temperature 36.4 C 36.2 C L Pulse Rate 78 77 Respiratory Rate 12 12 Blood Pressure 135/99 H 126/82 Pulse Oximetry 98 97 Oxygen Delivery Room Air Fraction of Inspired Oxygen 03/14/24 20:00 03/15/24 00:00 03/15/24 03:43 Temperature 36.2 C L Pulse Rate 75 71 51 L Respiratory Rate 12 Blood Pressure 132/97 H Pulse Oximetry 98 Oxygen Delivery Fraction of Inspired Oxygen 03/15/24 04:00 03/15/24 07:44 03/15/24 07:59 Temperature Pulse Rate 61 Respiratory Rate Blood Pressure Pulse Oximetry 97 Oxygen Delivery Room Air Room Air Fraction of Inspired Oxygen 03/15/24 08:00 03/15/24 09:23 Temperature 36.4 C L Pulse Rate 78 Respiratory Rate
[2024-03-15 11:24] LABS: Glucose Point of Care 269 mg/dl (65-105)
[2024-03-15] MEDS: INSULIN ASPART (*BKC) 100 UNITS/ML SUB-Q (13:17)
--- NOTE | 2024-03-15 14:02 | PM.IMPN ---
Progress Note: A&P Assessment and Plan (1) Bilateral pulmonary embolism: Code(s): I26.99 - Other pulmonary embolism without acute cor pulmonale Status: Acute Assessment and Plan: Chest CTA 03/12: Bilateral lower lobe pulmonary emboli. Cardiomegaly. Moderate bilateral pleural effusions with associated compressive atelectasis of the lower lobes in particular. Mild aortic aneurysm. Patient was on eliquis 5 mg BID and states compliance. - enoxaparin transition to Xarelto on 03/14 - Hematology consulted. - Hypercoagulability testing done outpatient. - Surgery consulted for IVC filter placement. - IVC filter placement on 03/14 (2) Deep vein thrombosis of bilateral lower extremities: Code(s): I82.403 - Acute embolism and thrombosis of unspecified deep veins of lower extremity, bilateral Status: Acute Assessment and Plan: History of LLE DVT on 12/10 and diagnosed with new onset A fib started on Eliquis. Venous Doppler 03/12: Acute deep vein thrombosis in the bilateral lower limbs. Patient is on Eliquis 5 mg BID and states compliance. - enoxaparin transition to Xarelto on 03/14 - Hematology consulted. - Surgery consulted for IVC filter placement on 03/14 (3) Heart failure with reduced ejection fraction: Code(s): I50.20 - Unspecified systolic (congestive) heart failure Status: Acute Assessment and Plan: Echo 12/14/23: LVEF 40-45% with mild to moderate mitral and tricuspid valve regurgitation, moderate pulmonary hypertension, and severely enlarged atrial chambers. - Echo 03/13/24: LVEF 20-25% with cardiomyopathy, and septal wall motion abnormality. - Cardiology consulted. - Continue metoprolol and add Entresto and spironolactone (4) Atrial fibrillation: Code(s): I48.91 - Unspecified atrial fibrillation Status: Acute Assessment and Plan: - EKG 03/12/24: Atrial fibrillation LBB - Current home medication: rate controlled on metoprolol 25 mg daily and eliquis 5 mg BID (failed treatment) - 03/14 transition to Xarelto from Lovenox - Tele (5) Chronic anticoagulation: Code(s): Z79.01 - FDC (current) use of anticoagulants Status: Acute Assessment and Plan: Started on eliquis 5 mg BID in Nov 2023 due to new onset atrial fibrillation. Failed anticoagulation therapy. - Venous dopplers: Acute deep vein thrombosis in the bilateral lower limbs. - Chest CTA: Bilateral lower lobe pulmonary emboli, Cardiomegaly, Moderate bilateral pleural effusions with associated compressive atelectasis of the lower lobes in particular, Mild aortic aneurysm - Enoxaparin transition to Xarelto on 03/14 - Hematology following (6) Hypertension: Code(s): I10 - Essential (primary) hypertension Status: Acute Assessment and Plan: Stable on home medications. - metoprolol 25 mg daily - monitor (7) Prediabetes: Code(s): R73.03 - Prediabetes Status: Acute Assessment and Plan: - hypoglycemia protocol - POC blood glucose ACHS - home medication - metformin - correct regimen ordered - low dose TIDWM and HS - A1C 6.8 (8) Hypothyroidism: Code(s): E03.9 - Hypothyroidism, unspecified Status: Acute Assessment and Plan: Continue radha emedication. Subjective Date/time seen: 03/15/24 14:02 Interval history: Patient doing well today with no new complaints. Once Cardiology has cleared the patient he will be ready for discharge. Exam Narrative: GENERAL: Comfortable, no acute distress HENMT: moist mucous membranes EYES: EOM intact b/l NECK: no lymphadenopathy RESPIRATORY: clear to auscultation, no increased respiratory effort CARDIO: Regular rate and rhythm GI: soft, nontender, bowel sounds present SKIN/EXTREMITIES: no rashes, no edema, no redness or tenderness NEURO: PROM intact, does not answer questions appropriately Objective Data Vital Signs Vital Signs: Vital Signs - 24 hr
[2024-03-15 16:11] LABS: Glucose Point of Care 160 mg/dl (65-105)
[2024-03-15 20:32] LABS: Glucose Point of Care 173 mg/dl (65-105)
[2024-03-16] VITALS (7 sets, daily range): BP systolic 117–144; BP diastolic 12–92; PULSE 64–87; RESP 18–24; TEMP 36.4–36.6; O2SAT 94–99
[2024-03-16] MEDS: RIVAROXABAN 15 MG TABLET PO (06:17)
[2024-03-16] MEDS: LEVOTHYROXINE SODIUM 25 MCG TABLET PO (06:17)
[2024-03-16 06:43] LABS: Hematocrit 44.9 % (42.0-52.0); Mean Corpuscular HGB Conc 31.2 g/dl (32-36); Mean Corpuscular Hemoglobin 26.8 pg (26-34); Mean Platelet Volume 9.7 fl (7.4-10.4); Platelet Count Result 172 k/mm3 (150-375); Red Blood Count 5.22 M/mm3 (4.6-6.20); Red Cell Distribution Width 17.1 % (11.5-14.5); White Blood Count 6.4 K/mm3 (4.5-10.0)
[2024-03-16 07:00] LABS: Alanine Aminotransferase 16 U/L (6-50); Albumin Level 3.7 g/dL (3.5-5.1); Alkaline Phosphatase 54 U/L (38-126); Anion Gap 6 mmol/L (4-12); Aspartate Amino Transferase 23 U/L (17-59); Bilirubin,Total 1.5 mg/dL (0.2-1.3); Blood Urea Nitrogen 15 mg/dL (9-20); Calcium 8.7 mg/dL (8.4-10.2); Carbon Dioxide 28 mmol/L (22-30); Chloride 104 mmol/L (98-107); Estimated CRCL calculation 66 ml/min; Estimated Glomerular Filt Rate > 60; Glucose 159 mg/dL (65-110); Potassium 3.7 mmol/L (3.4-5.0); Sodium 138 mmol/L (137-145)
[2024-03-16 07:37] LABS: Glucose Point of Care 158 mg/dl (65-105)
[2024-03-16] MEDS: MULTIVITAMINS /C LUTEIN (CENTRUM SILVER) TABLET *BKC 1 TAB PO (09:24)
[2024-03-16] MEDS: SPIRONOLACTONE 25 MG TABLET PO (09:25)
[2024-03-16] MEDS: SENNOSIDES 8.6 MG TABLET PO (09:25)
[2024-03-16] MEDS: DUTASTERIDE 0.5 MG CAPSULE PO (09:25)
[2024-03-16] MEDS: METOPROLOL SUCCINATE EXT REL 25 MG TABCR PO (09:25)
[2024-03-16] MEDS: TAMSULOSIN HCL 0.4 MG CAPSULE PO (09:25)
[2024-03-16] MEDS: SACUBITRIL/VALSARTAN 24-26 MG TABLET 1 TAB PO (09:28)
[2024-03-16] MEDS: DONEPEZIL HCL 10 MG TABLET PO (09:28)
[2024-03-16] MEDS: TOLNAFTATE 1% POWDER 45 GM BTL 1 APPLIC TOPICAL (09:36)
[2024-03-16 12:15] LABS: Glucose Point of Care 207 mg/dl (65-105)
[2024-03-16] MEDS: INSULIN ASPART (*BKC) 100 UNITS/ML SUB-Q (12:37)
[2024-03-16 15:16] LABS: SARS-CoV-2 RNA PCR Negative (Negative)
--- NOTE | 2024-03-16 15:29 | PM.DS ---
DS: Admitting Diagnosis Discharge Date 03/16/24 Admitting Diagnosis bilateral DVT, bilateral PE DS: Discharge Diagnosis Discharge Diagnosis (1) Bilateral pulmonary embolism: Code(s): I26.99 - Other pulmonary embolism without acute cor pulmonale Status: Acute (2) Deep vein thrombosis of bilateral lower extremities: Code(s): I82.403 - Acute embolism and thrombosis of unspecified deep veins of lower extremity, bilateral Status: Acute (3) Heart failure with reduced ejection fraction: Code(s): I50.20 - Unspecified systolic (congestive) heart failure Status: Acute (4) Atrial fibrillation: Code(s): I48.91 - Unspecified atrial fibrillation Status: Acute (5) Chronic anticoagulation: Code(s): Z79.01 - intermediate card tender (current) use of anticoagulants Status: Acute (6) Hypertension: Code(s): I10 - Essential (primary) hypertension Status: Acute (7) Prediabetes: Code(s): R73.03 - Prediabetes Status: Acute (8) Hypothyroidism: Code(s): E03.9 - Hypothyroidism, unspecified Status: Acute DS: Summary Hospital Course Hospital Course: This is a very pleasant 79-year-old male with dementia, hypertension, recurrent deep venous thromboses, atrial fibrillation, chronically anticoagulated with apixaban, heart failure with reduced right and left ventricular systolic function with an LVEF of 40 to 45%, borderline diabetes, hypothyroidism, and benign prostatic hyperplasia who presented to the emergency department for evaluation of weakness. Over last 9 months or so he has noticed that he has become progressively more fatigued with decreased exercise tolerance and shortness of breath with exertion. In the ED he was afebrile on arrival. Blood pressures have ranged from 127/103 to 150/97. EKG showed rate controlled atrial fibrillation with left bundle branch block. Labs were significant for a WBC count of 5.5, hemoglobin 12.3, hematocrit 30.7%, platelet 173, D-dimer 1.28, BUN 25, creatinine 1.20, proBNP 6200, troponin 0.018. UA was unremarkable. Chest CTA showed bilateral lower lobe pulmonary emboli with no evidence of right heart strain, cardiomegaly, and moderate bilateral pleural effusions. 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 bilateral lower extremity Dopplers show acute deep vein thrombosis in the bilateral lower limbs. patient had been on Eliquis due to recent diagnosis of atrial fibrillation. He was then put on Lovenox during hospital stay. Hematology consulted for concern for hypercoagulability. Web Specialist recommended outpatient hypercoagulability workup. IVC filter also recommended due to extensive clotting. Patient did not require any oxygen supplementation during this time. Surgery was consulted for an IVC filter that was placed on 03/14/2024. After filter was placed he was transition from Lovenox to Xarelto. Echocardiogram was performed due to patient's progressive weakness and shortness of breath over the past couple months which showed worsening heart failure with an EF of 20-25%. Cardiology was consulted on the patient and they recommended Entresto and spironolactone be added to patient's medication regimen. Patient was alert and oriented but had episodes of confusion and disorientation. we did not believe it safe for patient to return home where he lives alone and does not have any family support. He will discharge with anticoagulation therapy and new heart failure medication to SNF. Her his labs and vital signs are stable and he is medically clear for discharge at this time. Time Spent with Patient Time attestation: Total time spent providing and/or coordinating discharge services: Exam Narrative: GENERAL: Comfortable, no acute distress HENMT: moist mucous membranes EYES: EOM intact b/l NECK: no lymphadenopathy RESPIRATORY: clear to auscultation, no increased respiratory effort CARDIO: Regular rate and rhythm GI:
== END 2024-03-16 16:15 | DRG 176 ==
LOC: ANHED 11:29 → ANH3MEDSUR 13:49
PROVIDERS: Internal Medicine Critical Care Medicine; Physician Assistant; Student in an Organized Health Care Education/Training Program; Surgery; Admitting Provider Internal Medicine; Emergency Provider Nurse Practitioner Family; Visit Provider Internal Medicine
PROC: 06H03DZ Insertion of Intraluminal Device into Inferior Vena Cava, Percutaneous Approach (ICD-10-PCS; principal; 2024-03-14 12:30)
DX: I26.99 Other pulmonary embolism without acute cor pulmonale (principal); I82.413 Acute embolism and thrombosis of femoral vein, bilateral; I82.493 Acute embolism and thrombosis of other specified deep vein of lower extremity, bilateral; I82.453 Acute embolism and thrombosis of peroneal vein, bilateral; I82.443 Acute embolism and thrombosis of tibial vein, bilateral; I82.4Z1 Acute embolism and thrombosis of unspecified deep veins of right distal lower extremity; I82.432 Acute embolism and thrombosis of left popliteal vein; I50.22 Chronic systolic (congestive) heart failure; I42.9 Cardiomyopathy, unspecified; I11.0 Hypertensive heart disease with heart failure; E03.9 Hypothyroidism, unspecified; R73.03 Prediabetes; I48.0 Paroxysmal atrial fibrillation; N40.0 Benign prostatic hyperplasia without lower urinary tract symptoms; I44.7 Left bundle-branch block, unspecified; F03.90 Unspecified dementia, unspecified severity, without behavioral disturbance, psychotic disturbance, mood disturbance, and anxiety; M19.90 Unspecified osteoarthritis, unspecified site; K21.9 Gastro-esophageal reflux disease without esophagitis; Z79.01 Long term (current) use of anticoagulants; Z11.52 Encounter for screening for COVID-19
CPT/HCPCS: 36415; 37191; 70450; 71045; 71275; 80048; 80053; 81001; 82948; 83036; 83690; 83735; 83880; 84132; 84439; 84443; 84480; 84484; 85025; 85027; 85380; 85610; 85730; 87635; 93005; 93306; 93970; 96372; 97161; 97165; 97530; 99285; A9270; C1880; G0378; J1644; J1650; J1815; J1940; J3480; J7040; Q9967